=== PATIENT | female | born 1975 | race Caucasian/White ===

== ENCOUNTER 2016-12-22 14:55 | Emergency (ER) | payer OTHER ==
[2016-12-22 15:39] VITALS: BP 99/67
--- NOTE | 2016-12-22 16:02 | UC ---
Barbara Brown Rebecca, scribed for Isabella Kim MD on 12/22/16 at 1546 . Respiratory Complaint HPI - HPI Summary HPI Summary: When we went ot the room to see the patient, she was not there. Pt was seen leaving before eval - History of Current Complaint Chief Complaint: UCGeneralIllness Stated Complaint: ASTHMA,COUGH,FEVER Time Seen by Provider: 12/22/16 15:42 Hx Obtained From: Patient - Allergies/Home Medications Allergies/Adverse Reactions: Allergies Allergy/AdvReac Type Severity Reaction Status Date / Time Diphenhydramine Allergy Difficulty Verified 12/22/16 15:30 [From Benadryl] Breathing Penicillin V Allergy Rash Verified 12/22/16 15:30 Home Medications: Home Medications Acetaminophen [Tylenol] 325 mg PO 12/22/16 [History] Ibuprofen [Advil] 400 mg PO 12/22/16 [History] Pseudoephedrine HCl [Sudafed 12 Hour] 120 mg PO 12/22/16 [History] PMH/Surg Hx/FS Hx/Imm Hx Endocrine History Of: Denies: Diabetes, Thyroid Disease Cardiovascular History Of: Denies: Cardiac Disorders, Hypertension Respiratory History Of: Reports: Asthma Denies: COPD GI/ History Of: Denies: Ulcer Psychological History Of: Reports: Bipolar Disorder - Surgical History Surgical History: None - Social History Alcohol Use: Rare Substance Use Type: Marijuana Substance Use Comment - Amount & Last Used: Pt states smokes weed. hx: heroin and cocaine Smoking Status (MU): Heavy Every Day Tobacco Smoker Type: Cigarettes Amount Used/How Often: 1 pack/ day Length of Time of Smoking/Using Tobacco: 22 YEARS Have You Smoked in the Last Year: Yes - Immunization History Most Recent Influenza Vaccination: never gets it Most Recent Tetanus Shot: UTD Review of Systems All Other Systems Reviewed And Are Negative: No - Comments Additional Review of Systems Comments: left before eval Physical Exam Triage Information Reviewed: Yes Vital Signs: Initial Vital Signs Temp 99.4 F 12/22/16 15:33 Pulse 97 12/22/16 15:33 Resp 14 12/22/16 15:33 BP 99/67 12/22/16 15:33 Pulse Ox 95 12/22/16 15:33 UC Diagnostic Evaluation - Laboratory O2 Sat by Pulse Oximetry: 95 Respiratory Course/Dx - Course Course Of Treatment: left before eval - Differential Dx/Diagnosis Provider Diagnoses: left before eval Discharge - Discharge Plan Condition: Good Disposition: LEFT WITHOUT BEING SEEN Referrals: Jessica Ivory MD [Primary Care Provider] - The documentation as recorded by the Barbara williamson Rebecca accurately reflects the service I personally performed and the decisions made by Julio wheeler Laura, MD.
== END 2016-12-22 16:00 | disposition left against medical advice (07) ==
LOC: UCEAST 14:55
DX: J45.909 Unspecified asthma, uncomplicated (principal); R50.9 Fever, unspecified; Z88.0 Allergy status to penicillin; Z88.8 Allergy status to other drugs, medicaments and biological substances; F12.10 Cannabis abuse, uncomplicated; F17.200 Nicotine dependence, unspecified, uncomplicated; Z53.21 Procedure and treatment not carried out due to patient leaving prior to being seen by health care provider
CPT/HCPCS: 99211; G0463

== ENCOUNTER 2016-12-28 22:50 | Emergency (ER) | payer OTHER ==
[2016-12-28 22:55] VITALS: BP 119/68
[2016-12-28] MEDS ORDERED: NS 0.9% 1000 ML* 1,000 ML IV ONE (23:07)
[2016-12-28] MEDS ORDERED: methylPREDNISolone 125 MG* 2 ML VIAL IV ONE (23:07)
[2016-12-28] MEDS ORDERED: Albuterol 0.5% CONC NEB.SOL* 5 MG/ML 20 ml BOT INH ONE ×2 (23:24→23:37)
[2016-12-28] MEDS ORDERED: Ipratropium 0.5MG/2.5ML NEB* 0.5 MG/2.5 ML NEB.SOLN INH ONE (23:26)
[2016-12-28] MEDS ORDERED: Ipratropium 0.5MG/2.5ML NEB* 0.5 MG/2.5 ML NEB.SOLN ONE (23:28)
--- NOTE | 2016-12-28 23:29 | ED ---
Donna Brown SooYoung, scribed for Alex Inman MD on 12/28/16 at 2303 . Asthma - HPI Summary HPI Summary: A 41 y/o F presents to ED with c/o worsening URI over the past few days. Pt is a smoker. Pert PMHx: acute bronchial asthma. She says her asthma always acts up when the weather changes. Pt is not on home oxygen. She's been taking Zithromax for the past few days. PCP is Dr. Ivory. - History of Current Complaint Chief Complaint: EDAsthma Stated Complaint: ASTHMA COMPLAINT Time Seen by Provider: 12/28/16 23:00 Hx Obtained From: Patient, Family/Dental Service Technician Onset/Duration: Gradual Onset, Lasting Days, Still Present Timing: Constant Initial Severity: Mild Current Severity: Mild Pain Intensity: 0 Pain Scale Used: 0-10 Numeric Location/Character: Cough (Productive) Aggravating Symptoms: Weather Change - Allergy/Home Medications Allergies/Adverse Reactions: Allergies Allergy/AdvReac Type Severity Reaction Status Date / Time Diphenhydramine Allergy Difficulty Verified 12/22/16 15:30 [From Benadryl] Breathing Penicillin V Allergy Rash Verified 12/22/16 15:30 PMH/Surg Hx/FS Hx/Imm Hx Previously Healthy: No Endocrine/Hematology History: Denies: Hx Diabetes, Hx Thyroid Disease Cardiovascular History: Denies: Hx Hypertension Respiratory History: Reports: Hx Asthma Denies: Hx Chronic Obstructive Pulmonary Disease (COPD) GI History: Denies: Hx Ulcer Musculoskeletal History: Denies: Hx Rheumatoid Arthritis, Hx Osteoporosis Psychiatric History: Reports: Hx Bipolar Disorder, Hx Substance Abuse - Heroin Denies: Hx Eating Disorder, Hx of Violent Episodes Against Others - Immunization History Date of Tetanus Vaccine: 02/2009 Infectious Disease History: Reports: Hx of Known/Suspected MRSA - UPPER BACK 2013 Denies: Hx Hepatitis, Hx Human Immunodeficiency Virus (HIV), History Other Infectious Disease, Traveled Outside the [place] in Last 30 Days - Family History Known Family History: Positive: None - Pt denies FMHx, Other - denies FHx of pyschiatric issues - Social History Occupation: Unemployed Lives: With Family Alcohol Use: Rare Hx Substance Use: Yes Substance Use Type: Reports: Marijuana Substance Use Comment - Amount & Last Used: Pt states smokes weed. hx: heroin and cocaine Hx Tobacco Use: Yes Smoking Status (MU): Heavy Every Day Tobacco Smoker Type: Cigarettes Amount Used/How Often: 1 pack/ day Length of Time of Smoking/Using Tobacco: 22 YEARS Have You Smoked in the Last Year: Yes Review of Systems Positive: Shortness Of Breath, Cough - productive All Other Systems Reviewed And Are Negative: Yes Physical Exam Triage Information Reviewed: Yes Vital Signs On Initial Exam: Initial Vitals Temp Pulse Resp BP Pulse Ox 99.1 F 88 22 119/68 92 12/28/16 22:52 12/28/16 22:52 12/28/16 22:52 12/28/16 22:52 12/28/16 22:52 Vital Signs Reviewed: Yes Appearance: Positive: No Pain Distress, Thin Skin: Positive: Warm Head/Face: Positive: Normal Head/Face Inspection Eyes: Positive: TK ENT: Positive: Hearing grossly normal Neck: Positive: Supple Respiratory/Lung Sounds: Positive: Wheezes - diffuse bilat exp wheezes with prolonged expiration Cardiovascular: Positive: Normal Abdomen Description: Positive: Nontender, Soft Bowel Sounds: Positive: Present Neurological: Positive: Sensory/Motor Intact Psychiatric: Positive: Affect/Mood Appropriate Diagnostics - Vital Signs Vital Signs Temp Pulse Resp BP Pulse Ox 12/28/16 22:52 99.1 F 88 22 119/68 92 - Laboratory Result Diagrams: 12/28/16 23:25 12/28/16 23:25 Lab Statement: Any lab studies that have been ordered have been reviewed, and results considered in the medical decision making process. - Radiology CXR Xray Interpretation: No Acute Changes Radiology Interpretation Completed By: ED Physician Re-Evaluation - Re-Evaluation First Eval Change: Improved Asthma Course/Dx - Course Course Of Treatment: Pt is a 41 y/o F, 1ppd smoker, presenting with worsening URI. Pt has been taking Zithromax to no relief. Associated sx: productive cough. Pt given fluids, Albuterol, Solu-medrol, Atrovent in ED. Will DC home with prednisone. - Diagnoses Provider Diagnoses: Asthma Discharge - Discharge Plan Condition: Improved Disposition: HOME Prescriptions: predniSONE TAB* [Deltasone TAB*] 40 mg PO DAILY #8 tab Patient Education Materials: Prednisone (By mouth), Asthma (ED) Referrals: Jessica Ivory MD [Primary Care Provider] - () Additional Instructions: Please return if you experience new or worsening symptoms. The documentation as recorded by the Donna williamson SooYoung accurately reflects the service I personally performed and the decisions made by me, Alex Inman MD.
[2016-12-28 23:40] LABS: Hematocrit 39 % (35-47); Mean Corpuscular HGB Conc 34 g/dl (31-36); Mean Corpuscular Hemoglobin 30 pg (27-31); Mean Corpuscular Volume 89 fL (80-97); Mean Platelet Volume 9 um3 (7.4-10.4); Red Blood Count 4.35 10^6/ul (4.0-5.4); Red Cell Distribution Width 13 % (10.5-15); White Blood Count 8.3 10^3/ul (3.5-10.8)
[2016-12-28] MEDS ORDERED: Albuterol/Ipratropium NEB.SOL* Albuterol 2.5 MG/Ipratropium 0.5 MG 3 ML INH SCH (23:45)
[2016-12-28 23:53] LABS: Albumin 3.5 g/dL (3.2-5.2); BUN/Creatinine Ratio 13.2 (8-20); Calcium 8.8 mg/dL (8.6-10.3); EGFR African American 122.6 (>60); EGFR Non-African American 95.4 (>60); Globulin 3.7 g/dL (2-4); Total Bilirubin 0.3 mg/dL (0.2-1.0); Total Protein 7.2 g/dL (6.4-8.9)
--- NOTE | 2016-12-29 07:46 | RAD ---
HISTORY: Shortness of breath COMPARISONS: December 21, 2015 VIEWS: 2: Frontal dual-energy and lateral views of the chest. FINDINGS: CARDIOMEDIASTINAL SILHOUETTE: The cardiomediastinal silhouette is normal. FLOR: The flor are normal. PLEURA: The costophrenic angles are sharp. No pleural abnormalities are noted. LUNG PARENCHYMA: There is hyperinflation with flattening of the diaphragm and expansion of the AP diameter of the chest. ABDOMEN: The upper abdomen is clear. There is no subphrenic gas. BONES AND SOFT TISSUES: No bone or soft tissue abnormalities are noted. OTHER: None. IMPRESSION: HYPERINFLATION, CONSISTENT WITH COPD. NO ACTIVE CARDIOPULMONARY DISEASE.
== END 2016-12-29 02:02 | disposition home or self-care (01) ==
LOC: ED 22:50
DX: J45.909 Unspecified asthma, uncomplicated (principal); F31.9 Bipolar disorder, unspecified; F17.210 Nicotine dependence, cigarettes, uncomplicated
CPT/HCPCS: 36415; 71020; 80053; 85025; 96360; 99284; J2930; J7644

== ENCOUNTER 2017-02-17 10:51 | Emergency (ER) | payer SELFPAY ==
[2017-02-17 11:47] VITALS: BP 102/65
--- NOTE | 2017-02-17 13:22 | UC ---
Skin Complaint HPI - History of Current Complaint Chief Complaint: UCSkin Time Seen by Provider: 02/17/17 13:10 Stated Complaint: SOFT TISSUE COMPLAINT Hx Obtained From: Patient ?: No Onset/Duration: Gradual Onset - has had worsening abscess R forearm over past week after injecting heroin. today she "poked it open" and pus came out. Onset Severity: Mild Current Severity: Moderate Aggravating: Touch Alleviating: Nothing Associated Signs & Symptoms: Positive: Tenderness - Allergy/Home Medications Allergies/Adverse Reactions: Allergies Allergy/AdvReac Type Severity Reaction Status Date / Time Diphenhydramine Allergy Difficulty Verified 12/22/16 15:30 [From Benadryl] Breathing Penicillin V Allergy Rash Verified 12/22/16 15:30 Review of Systems Constitutional: Negative Respiratory: Negative Cardiovascular: Negative Musculoskeletal: Negative Neurological: Negative Psychological: Negative All Other Systems Reviewed And Are Negative: Yes PMH/Surg Hx/FS Hx/Imm Hx Previously Healthy: Yes Psychological History: Depression, Other - IV heroin and cocaine abuse Other Psychological History: drug abuse - Surgical History Surgical History: None - Family History Known Family History: Positive: None - Pt denies FMHx, Other - denies FHx of pyschiatric issues - Social History Occupation: Unemployed Lives: With Family Alcohol Use: Rare Substance Use Type: Cocaine, Heroin, Marijuana Substance Use Comment - Amount & Last Used: Pt states smokes weed. hx: heroin and cocaine Smoking Status (MU): Heavy Every Day Tobacco Smoker Type: Cigarettes Amount Used/How Often: 1 pack/ day Length of Time of Smoking/Using Tobacco: 22 YEARS Have You Smoked in the Last Year: Yes Cessation Counseling: Patient Advised to Stop - Immunization History Most Recent Influenza Vaccination: never gets it Most Recent Tetanus Shot: UTD Physical Exam Triage Information Reviewed: Yes Appearance: Well-Appearing, No Pain Distress, Well-Nourished Vital Signs: Initial Vital Signs Temp 98.6 F 02/17/17 11:42 Pulse 95 02/17/17 11:42 Resp 18 02/17/17 11:42 BP 102/65 02/17/17 11:42 Pulse Ox 95 02/17/17 11:42 Vital Signs Reviewed: Yes Respiratory Exam: Normal Cardiovascular Exam: Normal Skin: Positive: Other - erythemic, swollen, open abscess R anterior forearm Course/Dx - Differential Diagnoses - Skin Complaint Differential Diagnoses: Abscess, Cellulitis - Diagnoses Provider Diagnoses: skin abscess Discharge - Discharge Plan Condition: Stable Disposition: HOME Prescriptions: Clindamycin CAP* [Cleocin 150 MG CAP*] 300 mg PO Q6H #40 cap Referrals: Jessica Ivory MD [Primary Care Provider] - 2 Days (for recheck) Additional Instructions: warm packs to abscess start antibiotic today keep clean and covered
== END 2017-02-17 13:30 | disposition home or self-care (01) ==
LOC: UCEAST 10:51
DX: L02.413 Cutaneous abscess of right upper limb (principal); L03.113 Cellulitis of right upper limb; F14.10 Cocaine abuse, uncomplicated; F11.10 Opioid abuse, uncomplicated; Z72.0 Tobacco use
CPT/HCPCS: 99212; G0463

== ENCOUNTER 2017-08-04 08:17 | Emergency (ER) | payer SELFPAY ==
--- NOTE | 2017-08-04 08:26 | UC ---
Skin Complaint HPI - HPI Summary HPI Summary: 42 year old female presents with complains of right hand abscess. - History of Current Complaint Time Seen by Provider: 08/04/17 08:25 Stated Complaint: wound on hand Hx Obtained From: Patient Onset/Duration: Sudden Onset Onset Severity: Moderate Current Severity: Moderate Pain Scale Used: 0-10 Numeric - 7 - Allergy/Home Medications Allergies/Adverse Reactions: Allergies Allergy/AdvReac Type Severity Reaction Status Date / Time Diphenhydramine Allergy Difficulty Verified 12/22/16 15:30 [From Benadryl] Breathing Penicillin V Allergy Rash Verified 12/22/16 15:30 Review of Systems Constitutional: Negative Skin: Other - right hand abscess Eyes: Negative ENT: Negative Respiratory: Negative Cardiovascular: Negative Gastrointestinal: Negative Genitourinary: Negative Motor: Negative Neurovascular: Negative Musculoskeletal: Negative Neurological: Negative Psychological: Negative All Other Systems Reviewed And Are Negative: Yes PMH/Surg Hx/FS Hx/Imm Hx Previously Healthy: Yes - Surgical History Surgical History: None - Family History Known Family History: Positive: None - Pt denies FMHx, Other - denies FHx of pyschiatric issues - Social History Alcohol Use: Rare Substance Use Type: Cocaine, Heroin, Marijuana Substance Use Comment - Amount & Last Used: Pt states smokes weed. hx: heroin and cocaine Smoking Status (MU): Heavy Every Day Tobacco Smoker Type: Cigarettes Amount Used/How Often: 1 pack/ day Length of Time of Smoking/Using Tobacco: 22 YEARS Have You Smoked in the Last Year: Yes - Immunization History Most Recent Influenza Vaccination: never gets it Most Recent Tetanus Shot: UTD Physical Exam Triage Information Reviewed: Yes Vital Signs Reviewed: Yes Eye Exam: Normal ENT Exam: Normal Dental Exam: Normal Neck exam: Normal Neck: Positive: 1 Respiratory Exam: Normal Cardiovascular Exam: Normal Abdominal Exam: Normal Musculoskeletal Exam: Normal Neurological Exam: Normal Psychological Exam: Normal Skin: Positive: Other - right hand abscess Course/Dx - Differential Diagnoses - Skin Complaint Differential Diagnoses: Abscess - Diagnoses Provider Diagnoses: right hand abscess Discharge - Discharge Plan Condition: Stable Disposition: HOME Prescriptions: Mupirocin 2% OINT* [Bactroban 2 % Oint*] 1 applic TOPICAL BID #1 tube Sulfamethox/Trimethoprim DS* [Bactrim DS 800/160 TAB*] 1 tab PO BID #20 tab Patient Education Materials: Abscess (ED) Referrals: Jessica Ivory MD [Primary Care Provider] -
[2017-08-04 08:50] VITALS: BP 132/86
--- NOTE | 2017-08-05 07:27 | UC ---
- Progress Note Progress Note: Pt + MRSA on Bactrim Await sensitivity no change [place] 08/05/2017
== END 2017-08-04 09:08 | disposition home or self-care (01) ==
LOC: UCEAST 08:17
DX: L02.511 Cutaneous abscess of right hand (principal); F17.210 Nicotine dependence, cigarettes, uncomplicated; Z88.6 Allergy status to analgesic agent; Z88.0 Allergy status to penicillin
CPT/HCPCS: 87070; 87077; 87186; 87205; 87640; 87641; 99212; G0463

== ENCOUNTER 2018-05-03 17:12 | Emergency (ER) | payer MEDICAID ==
[2018-05-03 17:23] VITALS: BP 108/80
[2018-05-03] MEDS ORDERED: Albuterol/Ipratropium NEB.SOL* Albuterol 2.5 MG/Ipratropium 0.5 MG 3 ML INH ONE (18:40)
[2018-05-03] MEDS ORDERED: predniSONE TAB* 20 MG PO ONE (18:41)
--- NOTE | 2018-05-03 19:14 | ED ---
Respiratory - HPI Summary HPI Summary: 43-year-old female with history of asthma presents complaining of 3 days of increased shortness of breath and wheezing. Associated with a harsh non- productive cough She states she has been using her albuterol inhaler every 4 hours without relief and is almost out. Denies fever, chills, URI symptoms, chest pain, palpitations, edema, abdominal pain, nausea, or vomiting. 1 PPD smoker. She is presently on course of clindamycin for dental infection. - History of Current Complaint Chief Complaint: UCRespiratory Stated Complaint: COUGH,COLD Time Seen by Provider: 05/03/18 18:34 Hx Obtained From: Patient Onset/Duration: Lasting Days - 3-4 Initial Severity: Mild Current Severity: Moderate Pain Intensity: 0 Character: Wheezing, Cough (Nonproductive) - Allergy/Home Medications Allergies/Adverse Reactions: Allergies Allergy/AdvReac Type Severity Reaction Status Date / Time buprenorphine [From Suboxone] Allergy Difficulty Verified 05/03/18 17:25 Breathing diphenhydramine Allergy Difficulty Verified 05/03/18 17:25 [From Benadryl] Breathing naloxone [From Suboxone] Allergy Difficulty Verified 05/03/18 17:25 Breathing Penicillins Allergy Rash Verified 05/03/18 17:25 Home Medications: Home Medications Clindamycin Cap(NF) [Clindamycin Cap 300 mg Cap(NF)] 1 tab PO Q6HR 05/03/18 [ History Confirmed 05/03/18] Ibuprofen TAB* [Motrin TAB* 800 MG] 1 tab PO TID 05/03/18 [History Confirmed ] PMH/Surg Hx/FS Hx/Imm Hx Endocrine/Hematology History: Denies: Hx Diabetes, Hx Thyroid Disease Cardiovascular History: Denies: Hx Atrial Fibrillation, Hx Coronary Artery Disease, Hx Embolism, Hx Hypertension Respiratory History: Reports: Hx Asthma Denies: Hx Chronic Obstructive Pulmonary Disease (COPD) GI History: Denies: Hx Ulcer Musculoskeletal History: Denies: Hx Rheumatoid Arthritis, Hx Osteoporosis Psychiatric History: Reports: Hx Bipolar Disorder, Hx Substance Abuse - Heroin Denies: Hx of Violent Episodes Against Others - Immunization History Date of Tetanus Vaccine: 02/2009 Infectious Disease History: Yes Infectious Disease History: Reports: Hx Hepatitis, Hx of Known/Suspected MRSA - UPPER BACK 2012 Denies: Hx Clostridium Difficile, Hx Human Immunodeficiency Virus (HIV), Hx Shingles, Hx Tuberculosis, Hx Known/Suspected VRE, Hx Known/Suspected VRSA, History Other Infectious Disease, Traveled Outside the [place] in Last 30 Days - Family History Family History: Noncontributory - Social History Occupation: Unemployed Lives: With Family Alcohol Use: Rare Hx Substance Use: Yes Substance Use Type: Reports: Cocaine, Heroin, Marijuana Substance Use Comment - Amount & Last Used: Pt states smokes weed. hx: heroin and cocaine Hx Tobacco Use: Yes Smoking Status (MU): Heavy Every Day Tobacco Smoker Type: Cigarettes Amount Used/How Often: 1 pack/ day Length of Time of Smoking/Using Tobacco: 22 YEARS Have You Smoked in the Last Year: Yes Review of Systems Constitutional: Negative Eyes: Negative ENT: Negative Cardiovascular: Negative Positive: Shortness Of Breath, Cough, Other - wheezing Genitourinary: Negative All Other Systems Reviewed And Are Negative: Yes Physical Exam Triage Information Reviewed: Yes Vital Signs On Initial Exam: Initial Vitals Temp Pulse Resp BP Pulse Ox 98.7 F 94 18 108/80 94 05/03/18 17:21 05/03/18 17:21 05/03/18 17:21 05/03/18 17:21 05/03/18 17:21 Vital Signs Reviewed: Yes Appearance: Positive: No Pain Distress, Ill-Appearing - chronically, Thin - Appears older than stated age Skin: Positive: Warm, Skin Color Reflects Adequate Perfusion, Dry ENT: Positive: TMs normal, Uvula midline. Negative: Pharyngeal erythema, Nasal congestion, Nasal drainage, Tonsillar swelling, Tonsillar exudate Dental: Positive: Gross Decay/Caries @ - throughout dentition Neck: Positive: Supple, Nontender, No Lymphadenopathy Respiratory/Lung Sounds: Positive: Decreased Breath Sounds, Wheezes - diffuse bilataral wheezing, Other - Audible wheezing. Negative: Rales, Rhonchi Cardiovascular: Positive: RRR, S1, S2. Negative: Murmur Neurological: Positive: Alert, Oriented to Person Place, Time Psychiatric: Positive: Affect/Mood Appropriate Diagnostics - Vital Signs Vital Signs Temp Pulse Resp BP Pulse Ox 05/03/18 17:21 98.7 F 94 18 108/80 94 - Laboratory Lab Statement: Any lab studies that have been ordered have been reviewed, and results considered in the medical decision making process. Disposition - Course Course Of Treatment: 43-year-old female with history of asthma presents complaining of 3 days of increased shortness of breath and wheezing. On exam she was mildly hypoxic at 94% with audible wheezes throughout all lung vargas. She was given a single DuoNeb treatment and 40 mg of prednisone in the clinic. Following the treatment the patient's that she was breathing much easier. She continued to have diffuse wheezing throughout all lung vargas. It was recommended that she remain for some serial nebulizer treatments however patient declined stating she would prefer to use her inhaler at home. She was provided a new prescription for albuterol inhaler as she said that she only had a few doses left of her current inhaler. She is also prescribed a prednisone taper for 10 days. Patient was already on clindamycin for a dental infection. It was recommended that she complete this entire course. She is to follow-up with her primary care provider within the next 5 days for recheck of symptoms. Reviewed warning symptoms that would require immediate medical attention in the emergency room with patient. She verbalizes understanding and agrees with plan of care. - Differential Dx - Cardiopulmonary Differential Diagnoses - Cardiopulmonary: Asthma, Bronchitis, Influenza, Lower Resp Infection - Diagnoses Provider Diagnoses: Asthma exacerbation Discharge - Sign-Out/Discharge Documenting (check all that apply): Patient Departure All imaging exams completed and their final reports reviewed: No Studies - Discharge Plan Condition: Stable Disposition: HOME Prescriptions: Albuterol HFA INHALER* [Ventolin HFA Inhaler*] 2 puff INH Q4H PRN #1 mdi PRN Reason: Sob/Wheezing predniSONE TAB* [Deltasone 10 MG TAB*] 10 mg PO DAILY #26 tab Patient Education Materials: Asthma (ED) Referrals: Jessica Ivory MD [Primary Care Provider] - 5 Days (Follow up within 5 days for recheck.) Additional Instructions: You were given a nebulizer treatment in your first dose of prednisone here in the clinic today. Start prednisone taper. Starting tomorrow take 4 tablets daily for 2 days, then take 3 tablets daily for 3 days, then take 2 tablets daily for 3 days, then take 1 tablet daily for 3 days, then stop. Use your albuterol inhaler 2 puffs every 4 hours as needed for shortness of breath or wheezing. Continue the clindamycin prescribed to you previously. Be sure to complete the entire course. I would recommend that he stop smoking as this will worsen her symptoms. Follow-up with your primary care provider within the next 5 days for recheck of your symptoms. Seek immediate medical attention in the emergency room if you develop a fever greater than 100.5 F, have any chest pain, worsening shortness of breath, persistent wheezing despite using your albuterol inhaler, or any worsening of symptoms. - Billing Disposition and Condition Condition: STABLE Disposition: Home
== END 2018-05-03 19:23 | disposition home or self-care (01) ==
LOC: UCEAST 17:12
DX: J45.901 Unspecified asthma with (acute) exacerbation (principal); Z88.5 Allergy status to narcotic agent; Z88.0 Allergy status to penicillin; Z88.8 Allergy status to other drugs, medicaments and biological substances; F17.210 Nicotine dependence, cigarettes, uncomplicated
CPT/HCPCS: 99212; A9270-GY; G0463; J7512

== ENCOUNTER 2018-11-03 03:06 | Emergency (ER) | payer OTHER ==
[2018-11-03] MEDS ORDERED: Sulfamethox/Trimethoprim DS 800/160* TAB PO ONE (06:01)
[2018-11-03] MEDS ORDERED: Clindamycin CAP* 150 MG PO ONE (06:02)
--- NOTE | 2018-11-03 06:16 | ED ---
Skin Complaint - HPI Summary HPI Summary: Patient is a 43 yo IV drug user presenting to the ED with multiple right forearm abscesses. She states she has been attempting to drain them at home, but one was too large and she didn't want to cut it. Last IV drug use in this area was 2 days ago. She states she has been using other sites since the area became red, painful and warm. She has had multiple abscesses she states and has had several I & D's. She denies fevers, sweats or chills. Last IV drug use just [employer]. She is obviously under the influence on arrival and is unable to open her eyes. Family is at bedside. - History of Current Complaint Chief Complaint: EDRashSkinAbscess Time Seen by Provider: 11/03/18 05:36 Stated Complaint: ABSCESS ON MY RIGHT ARM PER PT Hx Obtained From: Patient Onset/Duration: Started Hours Ago Skin Exposure Onset/Duration: Hours Ago Timing: Constant Onset Severity: Worse Since: Current Severity: Severe Pain Intensity: 9 Pain Scale Used: 0-10 Numeric Skin Location: Discrete Character: Swelling, Pain, Redness, Raised, Painful Aggravating Symptom(s): Nothing Alleviating Symptom(s): Nothing Associated Signs & Symptoms: Negative - Allergy/Home Medications Allergies/Adverse Reactions: Allergies Allergy/AdvReac Type Severity Reaction Status Date / Time buprenorphine [From Suboxone] Allergy Difficulty Verified 05/03/18 17:25 Breathing diphenhydramine Allergy Difficulty Verified 05/03/18 17:25 [From Benadryl] Breathing naloxone [From Suboxone] Allergy Difficulty Verified 05/03/18 17:25 Breathing Penicillins Allergy Rash Verified 05/03/18 17:25 Home Medications: Home Medications Mirtazapine 30 mg PO DAILY 11/03/18 [History Confirmed 11/03/18] PMH/Surg Hx/FS Hx/Imm Hx Previously Healthy: Yes Endocrine/Hematology History: Denies: Hx Diabetes, Hx Thyroid Disease Cardiovascular History: Denies: Hx Atrial Fibrillation, Hx Coronary Artery Disease, Hx Embolism, Hx Hypertension Respiratory History: Reports: Hx Asthma Denies: Hx Chronic Obstructive Pulmonary Disease (COPD) GI History: Denies: Hx Ulcer Musculoskeletal History: Denies: Hx Rheumatoid Arthritis, Hx Osteoporosis Psychiatric History: Reports: Hx Bipolar Disorder, Hx Substance Abuse - Heroin Denies: Hx Eating Disorder, Hx of Violent Episodes Against Others - Immunization History Date of Tetanus Vaccine: 02/2009 Hx Pertussis Vaccination: No Immunizations Up to Date: Yes Infectious Disease History: Yes Infectious Disease History: Reports: Hx Hepatitis, Hx of Known/Suspected MRSA - UPPER BACK 2012 Denies: Hx Clostridium Difficile, Hx Human Immunodeficiency Virus (HIV), Hx Shingles, Hx Tuberculosis, Hx Known/Suspected VRE, Hx Known/Suspected VRSA, History Other Infectious Disease, Traveled Outside the [place] in Last 30 Days - Family History Known Family History: Positive: None - Pt denies FMHx, Other - denies FHx of pyschiatric issues Family History: Noncontributory - Social History Occupation: Unemployed Lives: Alone Alcohol Use: Rare Hx Substance Use: Yes Substance Use Type: Reports: Cocaine, Heroin, Marijuana Substance Use Comment - Amount & Last Used: Pt states smokes weed. hx: heroin and cocaine Hx Tobacco Use: Yes Smoking Status (MU): Heavy Every Day Tobacco Smoker Type: Cigarettes Amount Used/How Often: 1 pack/ day Length of Time of Smoking/Using Tobacco: 22 YEARS Have You Smoked in the Last Year: Yes Review of Systems Constitutional: Negative Negative: Fever, Chills, Fatigue, Skin Diaphoresis Negative: Chest Pain Positive: no symptoms reported, see HPI Negative: Arthralgia, Myalgia Positive: Other - 3 abscesses over the antecubital fossa - 2 spontaneously draining Neurological: Negative Psychological: Normal All Other Systems Reviewed And Are Negative: Yes Physical Exam Triage Information Reviewed: Yes Vital Signs On Initial Exam: Initial Vitals Temp Pulse Resp BP Pulse Ox 99.6 F 94 18 112/68 96 11/03/18 03:11 11/03/18 03:11 11/03/18 03:11 11/03/18 03:11 11/03/18 03:11 Vital Signs Reviewed: Yes Appearance: Positive: Well-Appearing, Well-Nourished Skin: Positive: Warm, Skin Color Reflects Adequate Perfusion Head/Face: Positive: Normal Head/Face Inspection Eyes: Positive: EOMI, Conjunctiva Clear Neck: Positive: Supple, No Lymphadenopathy Respiratory/Lung Sounds: Positive: Clear to Auscultation, Breath Sounds Present Cardiovascular: Positive: RRR, Pulses are Symmetrical in both Upper and Lower Extremities Musculoskeletal: Positive: Normal, Strength/ROM Intact, Other - patient continues to be able to flex and extend about the elbow before and after I and D Neurological: Positive: Sensory/Motor Intact, Alert, Oriented to Person Place, Time, Speech Normal Psychiatric: Positive: Affect/Mood Appropriate AVPU Assessment: Alert Procedures - Incision and Drainage Right Upper Anterior Arm Site: R antecubital fossa Anesthesia: Local Instrument(s): Scalpel Packing: Gauze Diagnostics - Vital Signs Vital Signs Temp Pulse Resp BP Pulse Ox 11/03/18 03:11 99.6 F 94 18 112/68 96 - Laboratory Lab Statement: Any lab studies that have been ordered have been reviewed, and results considered in the medical decision making process. Course/Dx - Course Course Of Treatment: Patient is evaluated for right forearm abscesses. She has agreed to an I&D of 1 of the right forearm abscesses in the antecubital fossa. She refuses the other two, however these have been spontaneously draining she states. R forearm has 3 large abscess, 2 of which are draining purulent material. One is fluctuant, non-draining, red, warm and painful. I and D performed under sterile process. 1ml lidocaine without epi used as local anesthetic, .5cm incision made over most superior portion of the abscess. Large amount of purulent drainage from area. Packed with 1/4 iodoform gauze approximately 2.5cm. Patient unable to tolerate further packing. Gauze wrapped. Patient is also refusing further I and D of other 2 abscesses. Clindamycin 600 mg PO given in the ED. She is prescribed clindamycin 300 mg 4 times daily 7 days. She is given strict return precautions and will have a follow-up in 2 days for a wound recheck and a possible repacking. Vital signs are stable, she continues to deny any fevers, sweats, chills. - Differential Diagnoses - Skin Complaint Differential Diagnoses: Other - IV drug use, cellulitis, myositis - Diagnoses Provider Diagnoses: Abscess Discharge - Sign-Out/Discharge Documenting (check all that apply): Patient Departure Patient Received Moderate/Deep Sedation with Procedure: No - Discharge Plan Condition: Stable Disposition: HOME Prescriptions: Clindamycin Cap(NF) [Clindamycin Cap 300 mg Cap(NF)] 300 mg PO Q6H #28 cap Patient Education Materials: Abscess (ED) Referrals: Jessica Ivory MD [Primary Care Provider] - Additional Instructions: Clindamycin four times daily x 7 days Warm compresses to the area as much as possible If you develop worsening abscess, fevers, sweats or chills - return to the ED Wound recheck in 2 days Come here to ED or go to urgent care Do not attempt to drain these at home Keep the bandage applied x 24 hours If the gauze inside the wound comes out - do not replace - just place another bandage over top - Billing Disposition and Condition Condition: STABLE Disposition: Home
[2018-11-03 06:23] VITALS: BP 101/61
== END 2018-11-03 06:22 | disposition home or self-care (01) ==
LOC: ED 03:06
DX: L02.413 Cutaneous abscess of right upper limb (principal); B95.61 Methicillin susceptible Staphylococcus aureus infection as the cause of diseases classified elsewhere; F31.9 Bipolar disorder, unspecified; Z88.5 Allergy status to narcotic agent; Z88.0 Allergy status to penicillin; Z88.8 Allergy status to other drugs, medicaments and biological substances; F17.210 Nicotine dependence, cigarettes, uncomplicated
CPT/HCPCS: 10060; 87070; 87077; 87186; 87205; 87640; 87641; 99282; A9270-GY

== ENCOUNTER 2020-11-02 14:21 | Inpatient (IN) ==
[2020-11-02] MEDS ORDERED: Albuterol 2.5mg/3 ml (0.083%) NEB.SOLN INH PRN (15:52)
[2020-11-02] MEDS ORDERED: Senna TAB 8.6 mg TAB PO PRN (15:52)
[2020-11-02] MEDS ORDERED: Enoxaparin 40 MG/0.4 ML SYR SUBCUT SCH (16:00)
[2020-11-02] MEDS: Lidocaine Patch REMOVE PATCH PATCH OFF SCH (21:46)
[2020-11-02] MEDS: Cefepime 2 GM in Dextrose 2 GM/50 ML BAG IV SCH (21:49)
[2020-11-02] MEDS ORDERED: NS 0.9% IVPB SCH (22:00)
[2020-11-02] MEDS ORDERED: DAPTOMYCIN IVPB SCH (22:00)
[2020-11-02] MEDS ORDERED: Alteplase (CATHFLO) 2 MG VIAL IV ONE (23:29)
[2020-11-03 05:02] LABS: ABS Eosinophils 0.1 10^3/ul (0-0.6); ABS Lymphocytes 2.1 10^3/ul (1.0-4.8); ABS Monocytes 0.5 10^3/ul (0-0.8); ABS Neutrophils 3.5 10^3/ul (1.5-7.7); Eosinophil % 1.9 %; Hematocrit 25 % (35-47); Hemoglobin 8.2 g/dL (12.0-16.0); Lymphocyte % 33.3 %; Mean Corpuscular HGB Conc 33 g/dL (31-36); Mean Corpuscular Hemoglobin 30 pg (27-31); Mean Corpuscular Volume 91 fL (80-97); Mean Platelet Volume 8.2 fL (7.4-10.4); Platelet Count 163 10^3/uL (150-450); Red Blood Count 2.74 10^6 /uL (3.70-4.87); Red Cell Distribution Width 15 % (10-15); White Blood Count 6.2 10^3/uL (3.5-10.8)
[2020-11-03 05:19] LABS: Albumin 1.9 g/dL (3.2-5.2); Albumin/Globulin Ratio 0.4 (1-3); BUN/Creatinine Ratio 15.8 (8-20); Calcium 7.8 mg/dL (8.6-10.3); EGFR African American 52.2 (>60); EGFR Non-African American 43.1 (>60); Globulin 4.4 g/dL (2-4); Potassium 3.3 mmol/L (3.5-5.0); Total Bilirubin 0.3 mg/dL (0.2-1.0); Total Protein 6.3 g/dL (6.4-8.9)
[2020-11-03] MEDS: Aspirin EC 81 mg TAB.EC (enteric coated) PO SCH (08:20)
[2020-11-03] MEDS: Enoxaparin 40 MG/0.4 ML SYR SUBCUT SCH (08:21)
[2020-11-03] MEDS: Lidocaine PATCH 5% PATCH TRANSDERM SCH (08:21)
[2020-11-03] MEDS: Cefepime 2 GM in Dextrose 2 GM/50 ML BAG IV SCH ×2 (08:22→20:52)
[2020-11-03] MEDS: Polyethylene Glycol 3350 17 GM PACKET PO SCH (08:22)
[2020-11-03] MEDS ORDERED: Vancomycin per Pharmacy 1 EA NOTE FOLLOW UP PRN (11:36)
[2020-11-03] MEDS ORDERED: Vancomycin 1,500 MG in NS 0.9% 250 ml 250 ML IVPB ONE (12:00)
[2020-11-03] MEDS: Lidocaine Patch REMOVE PATCH PATCH OFF SCH (20:55)
[2020-11-04 04:57] LABS: ABS Eosinophils 0.1 10^3/ul (0-0.6); ABS Lymphocytes 1.7 10^3/ul (1.0-4.8); ABS Monocytes 0.5 10^3/ul (0-0.8); ABS Neutrophils 3.9 10^3/ul (1.5-7.7); Eosinophil % 1.6 %; Hematocrit 25 % (35-47); Hemoglobin 8.2 g/dL (12.0-16.0); Lymphocyte % 27.7 %; Mean Corpuscular HGB Conc 33 g/dL (31-36); Mean Corpuscular Hemoglobin 30 pg (27-31); Mean Corpuscular Volume 91 fL (80-97); Mean Platelet Volume 8.7 fL (7.4-10.4); Platelet Count 167 10^3/uL (150-450); Red Blood Count 2.75 10^6 /uL (3.70-4.87); Red Cell Distribution Width 15 % (10-15); White Blood Count 6.3 10^3/uL (3.5-10.8)
[2020-11-04 05:22] LABS: Albumin/Globulin Ratio 0.5 (1-3); BUN/Creatinine Ratio 15.6 (8-20); Calcium 7.9 mg/dL (8.6-10.3); EGFR African American 51.3 (>60); EGFR Non-African American 42.4 (>60); Globulin 4.4 g/dL (2-4); Potassium 3.3 mmol/L (3.5-5.0); Total Bilirubin 0.3 mg/dL (0.2-1.0); Total Protein 6.4 g/dL (6.4-8.9)
[2020-11-04] MEDS ORDERED: Vancomycin Random Level NOTE FOLLOW UP ONE (08:00)
[2020-11-04] MEDS: Polyethylene Glycol 3350 17 GM PACKET PO SCH (08:15)
[2020-11-04] MEDS: Aspirin EC 81 mg TAB.EC (enteric coated) PO SCH (08:18)
[2020-11-04] MEDS: Enoxaparin 40 MG/0.4 ML SYR SUBCUT SCH (08:19)
[2020-11-04] MEDS: Cefepime 2 GM in Dextrose 2 GM/50 ML BAG IV SCH ×2 (09:12→21:49)
[2020-11-04] MEDS: Lidocaine PATCH 5% PATCH TRANSDERM SCH (09:15)
[2020-11-04 09:27] LABS: ABS Basophils 0.1 10^3/ul (0-0.2); ABS Eosinophils 0.1 10^3/ul (0-0.6); ABS Lymphocytes 2.5 10^3/ul (1.0-4.8); ABS Monocytes 0.6 10^3/ul (0-0.8); ABS Neutrophils 5.2 10^3/ul (1.5-7.7); Eosinophil % 0.9 %; Hematocrit 29 % (35-47); Hemoglobin 9.9 g/dL (12.0-16.0); Lymphocyte % 29.4 %; Mean Corpuscular HGB Conc 34 g/dL (31-36); Mean Corpuscular Hemoglobin 30 pg (27-31); Mean Corpuscular Volume 89 fL (80-97); Mean Platelet Volume 8.7 fL (7.4-10.4); Nucleated Red Blood Cells % 0.2; Platelet Count 212 10^3/uL (150-450); Red Blood Count 3.29 10^6 /uL (3.70-4.87); Red Cell Distribution Width 15 % (10-15); White Blood Count 8.4 10^3/uL (3.5-10.8)
[2020-11-04 09:37] LABS: Albumin 2.3 g/dL (3.2-5.2); Albumin/Globulin Ratio 0.4 (1-3); BUN/Creatinine Ratio 15.1 (8-20); Calcium 8.4 mg/dL (8.6-10.3); EGFR African American 49.6 (>60); Globulin 5.2 g/dL (2-4); Potassium 3.3 mmol/L (3.5-5.0); Total Bilirubin 0.4 mg/dL (0.2-1.0); Total Protein 7.5 g/dL (6.4-8.9); Vancomycin Random 16.8 mcg/mL
[2020-11-04] MEDS: KCL 20 MEQ/100 ML IVPREMIX 20 MEQ/100 ML BAG IV SCH ×3 (11:53→16:58)
[2020-11-04] MEDS ORDERED: Vancomycin 750 MG in NS 0.9% 250 ML IVPB ONE (12:00)
[2020-11-04] MEDS: Lidocaine Patch REMOVE PATCH PATCH OFF SCH (21:50)
[2020-11-05] MEDS ORDERED: Vancomycin Random Level NOTE FOLLOW UP ONE (06:00)
[2020-11-05 06:37] LABS: EGFR African American 58.8 (>60); EGFR Non-African American 48.6 (>60)
[2020-11-05 06:51] LABS: Vancomycin Random 18.4 mcg/mL
[2020-11-05] MEDS: Aspirin EC 81 mg TAB.EC (enteric coated) PO SCH (09:31)
[2020-11-05] MEDS: Polyethylene Glycol 3350 17 GM PACKET PO SCH (09:32)
[2020-11-05] MEDS: Enoxaparin 40 MG/0.4 ML SYR SUBCUT SCH (09:33)
[2020-11-05] MEDS: Lidocaine PATCH 5% PATCH TRANSDERM SCH (09:50)
[2020-11-05] MEDS: Cefepime 2 GM in Dextrose 2 GM/50 ML BAG IV SCH (09:54)
[2020-11-05] MEDS ORDERED: Vancomycin 500 MG in NS 0.9% 250 ML IVPB ONE (14:00)
[2020-11-05] MEDS: Nicotine PATCH 21 MG/24 HR PATCH TRANSDERM SCH (14:45)
[2020-11-05] MEDS: Lidocaine Patch REMOVE PATCH PATCH OFF SCH (20:34)
[2020-11-05] MEDS: Collagenase 250 units/gm OINT 1 tube TOPICAL SCH (20:34)
[2020-11-06] MEDS ORDERED: Vancomycin Random Level NOTE FOLLOW UP ONE (06:00)
[2020-11-06] MEDS: Enoxaparin 40 MG/0.4 ML SYR SUBCUT SCH (08:37)
[2020-11-06] MEDS: Aspirin EC 81 mg TAB.EC (enteric coated) PO SCH (08:38)
[2020-11-06] MEDS: Nicotine PATCH 21 MG/24 HR PATCH TRANSDERM SCH (08:38)
[2020-11-06] MEDS: Lidocaine PATCH 5% PATCH TRANSDERM SCH (08:38)
[2020-11-06] MEDS: Polyethylene Glycol 3350 17 GM PACKET PO SCH (08:38)
[2020-11-06] MEDS: Collagenase 250 units/gm OINT 1 tube TOPICAL SCH ×2 (08:39→21:16)
[2020-11-06] MEDS ORDERED: Vancomycin 750 MG in NS 0.9% 250 ML IVPB ONE (10:00)
[2020-11-06] MEDS: Lidocaine Patch REMOVE PATCH PATCH OFF SCH (21:16)
[2020-11-07] MEDS ORDERED: Vancomycin Random Level NOTE FOLLOW UP ONE (06:00)
[2020-11-07 06:04] LABS: EGFR African American 52.2 (>60); EGFR Non-African American 43.1 (>60)
[2020-11-07] MEDS: Polyethylene Glycol 3350 17 GM PACKET PO SCH (09:35)
[2020-11-07] MEDS: Enoxaparin 40 MG/0.4 ML SYR SUBCUT SCH (09:35)
[2020-11-07] MEDS: Lidocaine PATCH 5% PATCH TRANSDERM SCH (09:36)
[2020-11-07] MEDS: Nicotine PATCH 21 MG/24 HR PATCH TRANSDERM SCH (09:37)
[2020-11-07] MEDS: Aspirin EC 81 mg TAB.EC (enteric coated) PO SCH (09:37)
[2020-11-07] MEDS: Collagenase 250 units/gm OINT 1 tube TOPICAL SCH ×2 (09:38→20:35)
[2020-11-07] MEDS ORDERED: Vancomycin 1,000 MG - ONCE IVPB ONE (11:00)
[2020-11-07] MEDS: Lidocaine Patch REMOVE PATCH PATCH OFF SCH (23:41)
[2020-11-08 05:33] LABS: ABS Eosinophils 0.2 10^3/ul (0-0.6); ABS Lymphocytes 2.4 10^3/ul (1.0-4.8); ABS Monocytes 0.6 10^3/ul (0-0.8); ABS Neutrophils 3.4 10^3/ul (1.5-7.7); Eosinophil % 2.8 %; Hematocrit 24 % (35-47); Hemoglobin 7.7 g/dL (12.0-16.0); Lymphocyte % 36.2 %; Mean Corpuscular HGB Conc 32 g/dL (31-36); Mean Corpuscular Hemoglobin 30 pg (27-31); Mean Corpuscular Volume 91 fL (80-97); Mean Platelet Volume 8.6 fL (7.4-10.4); Platelet Count 150 10^3/uL (150-450); Red Blood Count 2.61 10^6 /uL (3.70-4.87); Red Cell Distribution Width 16 % (10-15); White Blood Count 6.5 10^3/uL (3.5-10.8)
[2020-11-08 05:56] LABS: ALT 6 U/L (7-52); AST 5 U/L (13-39); Albumin/Globulin Ratio 0.5 (1-3); Alkaline Phosphatase 53 U/L (34-104); Anion Gap 6 mmol/L (2-11); BUN/Creatinine Ratio 17.8 (8-20); Blood Urea Nitrogen 24 mg/dL (6-24); CO2 Carbon Dioxide 28 mmol/L (22-32); Calcium 7.7 mg/dL (8.6-10.3); Chloride 103 mmol/L (101-111); EGFR African American 51.3 (>60); EGFR Non-African American 42.4 (>60); Globulin 3.9 g/dL (2-4); Glucose 87 mg/dL (70-100); Potassium 2.9 mmol/L (3.5-5.0); Sodium 137 mmol/L (135-145); Total Protein 5.9 g/dL (6.4-8.9)
[2020-11-08] MEDS ORDERED: Vancomycin Random Level NOTE FOLLOW UP ONE (06:00)
[2020-11-08 06:03] LABS: Vancomycin Random 13.8 mcg/mL
[2020-11-08] MEDS ORDERED: Cefepime 2 GM in Dextrose 2 GM/50 ML BAG IV SCH (08:00)
[2020-11-08] MEDS ORDERED: Vancomycin per Pharmacy 1 EA NOTE FOLLOW UP SCH (08:00)
[2020-11-08] MEDS: Enoxaparin 40 MG/0.4 ML SYR SUBCUT SCH (08:49)
[2020-11-08] MEDS: Nicotine PATCH 21 MG/24 HR PATCH TRANSDERM SCH (08:50)
[2020-11-08] MEDS: Lidocaine PATCH 5% PATCH TRANSDERM SCH (08:51)
[2020-11-08] MEDS: Aspirin EC 81 mg TAB.EC (enteric coated) PO SCH (08:53)
[2020-11-08] MEDS: Collagenase 250 units/gm OINT 1 tube TOPICAL SCH ×2 (08:56→21:19)
[2020-11-08] MEDS: Polyethylene Glycol 3350 17 GM PACKET PO SCH (08:56)
[2020-11-08] MEDS ORDERED: Vancomycin 1000 MG in NS 0.9% 250 ML IVPB ONE (11:30)
[2020-11-08 13:51] LABS: Total Iron Binding Capacity 167 mcg/dL (250-450); Transferrin 119 mg/dL (203-362)
[2020-11-08 13:59] LABS: % Iron Saturation 12 % (15-55); Iron < 20 ug/dL (50-212); Unsaturated Iron Binding < 152 ug/dL
[2020-11-08 14:12] LABS: Ferritin 248.5 ng/mL (11-307)
[2020-11-08 14:15] LABS: Folate > 20.00 ng/mL (>3.99)
[2020-11-08 14:16] LABS: Vitamin B12 608 pg/mL (180-914)
[2020-11-08] MEDS: Potassium Chlor 20 meq TAB.ER PO SCH ×2 (14:49→16:37)
[2020-11-08] MEDS: Lidocaine Patch REMOVE PATCH PATCH OFF SCH (21:21)
[2020-11-09] MEDS ORDERED: Vancomycin Random Level NOTE FOLLOW UP ONE (06:00)
[2020-11-09] MEDS: Polyethylene Glycol 3350 17 GM PACKET PO SCH (08:35)
[2020-11-09] MEDS: Nicotine PATCH 21 MG/24 HR PATCH TRANSDERM SCH (08:46)
[2020-11-09] MEDS: Enoxaparin 40 MG/0.4 ML SYR SUBCUT SCH (08:46)
[2020-11-09] MEDS: Lidocaine PATCH 5% PATCH TRANSDERM SCH (08:46)
[2020-11-09] MEDS: Aspirin EC 81 mg TAB.EC (enteric coated) PO SCH (08:47)
[2020-11-09] MEDS: Collagenase 250 units/gm OINT 1 tube TOPICAL SCH ×2 (08:48→20:07)
[2020-11-09] MEDS: Vancomycin 1000 MG in NS 0.9% 250 ML IVPB SCH (12:24)
[2020-11-09] MEDS: Lidocaine Patch REMOVE PATCH PATCH OFF SCH (20:05)
[2020-11-10] MEDS: Polyethylene Glycol 3350 17 GM PACKET PO SCH (07:46)
[2020-11-10] MEDS: Lidocaine PATCH 5% PATCH TRANSDERM SCH (08:13)
[2020-11-10] MEDS: Nicotine PATCH 21 MG/24 HR PATCH TRANSDERM SCH (08:13)
[2020-11-10] MEDS: Aspirin EC 81 mg TAB.EC (enteric coated) PO SCH (08:14)
[2020-11-10] MEDS: Enoxaparin 40 MG/0.4 ML SYR SUBCUT SCH (08:16)
[2020-11-10] MEDS: Collagenase 250 units/gm OINT 1 tube TOPICAL SCH ×2 (08:16→21:48)
[2020-11-10] MEDS: Vancomycin 1000 MG in NS 0.9% 250 ML IVPB SCH (12:30)
[2020-11-10] MEDS: Lidocaine Patch REMOVE PATCH PATCH OFF SCH (21:48)
[2020-11-11] MEDS: Lidocaine PATCH 5% PATCH TRANSDERM SCH (10:06)
[2020-11-11] MEDS: Enoxaparin 40 MG/0.4 ML SYR SUBCUT SCH (10:07)
[2020-11-11] MEDS: Aspirin EC 81 mg TAB.EC (enteric coated) PO SCH (10:07)
[2020-11-11] MEDS: Polyethylene Glycol 3350 17 GM PACKET PO SCH (10:10)
[2020-11-11] MEDS: Nicotine PATCH 21 MG/24 HR PATCH TRANSDERM SCH (10:36)
[2020-11-11] MEDS: Collagenase 250 units/gm OINT 1 tube TOPICAL SCH ×2 (10:37→22:00)
[2020-11-11] MEDS ORDERED: Vancomycin Trough Check NOTE FOLLOW UP ONE (12:00)
[2020-11-11 13:55] LABS: Hematocrit 24 % (35-47); Hemoglobin 8.1 g/dL (12.0-16.0)
[2020-11-11 14:19] LABS: EGFR African American 43.1 (>60); EGFR Non-African American 35.6 (>60)
[2020-11-11] MEDS: Vancomycin 1000 MG in NS 0.9% 250 ML IVPB SCH (14:37)
[2020-11-11] MEDS: Lidocaine Patch REMOVE PATCH PATCH OFF SCH (22:00)
[2020-11-12] MEDS: Polyethylene Glycol 3350 17 GM PACKET PO SCH (10:00)
[2020-11-12] MEDS: Enoxaparin 40 MG/0.4 ML SYR SUBCUT SCH (10:16)
[2020-11-12] MEDS: Lidocaine PATCH 5% PATCH TRANSDERM SCH (10:16)
[2020-11-12] MEDS: Aspirin EC 81 mg TAB.EC (enteric coated) PO SCH (10:17)
[2020-11-12] MEDS: Nicotine PATCH 21 MG/24 HR PATCH TRANSDERM SCH (10:17)
[2020-11-12] MEDS: Collagenase 250 units/gm OINT 1 tube TOPICAL SCH (10:18)
[2020-11-13] MEDS: Collagenase 250 units/gm OINT 1 tube TOPICAL SCH ×3 (02:41→20:29)
[2020-11-13] MEDS: Lidocaine Patch REMOVE PATCH PATCH OFF SCH ×2 (02:42→20:30)
[2020-11-13] MEDS ORDERED: Vancomycin Random Level NOTE FOLLOW UP ONE (06:00)
[2020-11-13] MEDS ORDERED: Vancomycin 1000 MG in NS 0.9% 250 ML IVPB ONE (09:00)
[2020-11-13] MEDS: Lidocaine PATCH 5% PATCH TRANSDERM SCH (11:11)
[2020-11-13] MEDS: Nicotine PATCH 21 MG/24 HR PATCH TRANSDERM SCH (11:11)
[2020-11-13] MEDS: Aspirin EC 81 mg TAB.EC (enteric coated) PO SCH (11:12)
[2020-11-13] MEDS: Enoxaparin 40 MG/0.4 ML SYR SUBCUT SCH (11:13)
[2020-11-13] MEDS: Polyethylene Glycol 3350 17 GM PACKET PO SCH (12:09)
[2020-11-13 15:22] LABS: Hematocrit 23 % (35-47); Hemoglobin 7.6 g/dL (12.0-16.0); Mean Corpuscular HGB Conc 33 g/dL (31-36); Mean Corpuscular Hemoglobin 30 pg (27-31); Mean Corpuscular Volume 90 fL (80-97); Mean Platelet Volume 8.3 fL (7.4-10.4); Platelet Count 123 10^3/uL (150-450); Red Blood Count 2.54 10^6 /uL (3.70-4.87); Red Cell Distribution Width 15 % (10-15); White Blood Count 5.7 10^3/uL (3.5-10.8)
[2020-11-13 15:37] LABS: BUN/Creatinine Ratio 17.7 (8-20); Calcium 8.1 mg/dL (8.6-10.3); EGFR Non-African American 33.9 (>60); Magnesium 1.4 mg/dL (1.9-2.7); Potassium 4.2 mmol/L (3.5-5.0)
[2020-11-13 15:53] LABS: ABS Eosinophils 0.1 10^3/ul (0-0.6); ABS Lymphocytes 2.4 10^3/ul (1.0-4.8); ABS Monocytes 0.5 10^3/ul (0-0.8); ABS Neutrophils 2.6 10^3/ul (1.5-7.7); Eosinophil % 2.2 %; Lymphocyte % 42.4 %
[2020-11-13] MEDS ORDERED: Magnesium Sulfate IV 3 GM in NS 0.9% 100 ml BAG 100 ML IVPB ONE (17:08)
[2020-11-14] MEDS ORDERED: Vancomycin Random Level NOTE FOLLOW UP ONE (06:00)
[2020-11-14 06:15] LABS: EGFR African American 33.4 (>60); EGFR Non-African American 27.6 (>60)
[2020-11-14 06:24] LABS: Vancomycin Random 22.5 mcg/mL
[2020-11-14] MEDS: Enoxaparin 40 MG/0.4 ML SYR SUBCUT SCH (09:59)
[2020-11-14] MEDS: Lidocaine PATCH 5% PATCH TRANSDERM SCH (09:59)
[2020-11-14] MEDS: Nicotine PATCH 21 MG/24 HR PATCH TRANSDERM SCH (10:00)
[2020-11-14] MEDS: Polyethylene Glycol 3350 17 GM PACKET PO SCH (10:03)
[2020-11-14] MEDS: Collagenase 250 units/gm OINT 1 tube TOPICAL SCH ×2 (10:03→22:28)
[2020-11-14] MEDS: Aspirin EC 81 mg TAB.EC (enteric coated) PO SCH (10:03)
[2020-11-14] MEDS: Lidocaine Patch REMOVE PATCH PATCH OFF SCH (22:56)
[2020-11-15] MEDS ORDERED: Vancomycin Random Level NOTE FOLLOW UP ONE (06:00)
[2020-11-15 06:31] LABS: ABS Eosinophils 0.1 10^3/ul (0-0.6); ABS Lymphocytes 2.5 10^3/ul (1.0-4.8); ABS Monocytes 0.4 10^3/ul (0-0.8); ABS Neutrophils 2.3 10^3/ul (1.5-7.7); Eosinophil % 2.3 %; Hematocrit 21 % (35-47); Hemoglobin 7.1 g/dL (12.0-16.0); Lymphocyte % 46.7 %; Mean Corpuscular HGB Conc 33 g/dL (31-36); Mean Corpuscular Hemoglobin 30 pg (27-31); Mean Corpuscular Volume 90 fL (80-97); Mean Platelet Volume 8.8 fL (7.4-10.4); Nucleated Red Blood Cells % 0.1; Platelet Count 136 10^3/uL (150-450); Red Blood Count 2.37 10^6 /uL (3.70-4.87); Red Cell Distribution Width 15 % (10-15); White Blood Count 5.4 10^3/uL (3.5-10.8)
[2020-11-15 06:48] LABS: BUN/Creatinine Ratio 15.3 (8-20); EGFR Non-African American 26.6 (>60); Potassium 4.2 mmol/L (3.5-5.0)
[2020-11-15 06:49] LABS: Albumin 2.3 g/dL (3.2-5.2); Albumin/Globulin Ratio 0.5 (1-3); C Reactive Protein 65.25 mg/L (<8.01); Calcium 8.4 mg/dL (8.6-10.3); EGFR African American 32.2 (>60); Globulin 4.3 g/dL (2-4); Total Bilirubin 0.2 mg/dL (0.2-1.0); Total Protein 6.6 g/dL (6.4-8.9); Vancomycin Random 16.1 mcg/mL
[2020-11-15] MEDS: Collagenase 250 units/gm OINT 1 tube TOPICAL SCH ×2 (09:47→21:09)
[2020-11-15] MEDS: Nicotine PATCH 21 MG/24 HR PATCH TRANSDERM SCH (09:55)
[2020-11-15] MEDS: Aspirin EC 81 mg TAB.EC (enteric coated) PO SCH (09:57)
[2020-11-15] MEDS: Polyethylene Glycol 3350 17 GM PACKET PO SCH (10:01)
[2020-11-15] MEDS: Enoxaparin 40 MG/0.4 ML SYR SUBCUT SCH (10:01)
[2020-11-15] MEDS: Lidocaine PATCH 5% PATCH TRANSDERM SCH (10:02)
[2020-11-16 05:23] LABS: Hematocrit 21 % (35-47); Hemoglobin 7.1 g/dL (12.0-16.0); Mean Corpuscular HGB Conc 34 g/dL (31-36); Mean Corpuscular Hemoglobin 30 pg (27-31); Mean Corpuscular Volume 90 fL (80-97); Mean Platelet Volume 8.1 fL (7.4-10.4); Platelet Count 134 10^3/uL (150-450); Red Blood Count 2.35 10^6 /uL (3.70-4.87); Red Cell Distribution Width 15 % (10-15); White Blood Count 5.6 10^3/uL (3.5-10.8)
[2020-11-16] MEDS: Lidocaine Patch REMOVE PATCH PATCH OFF SCH ×2 (05:27→20:26)
[2020-11-16] MEDS: Enoxaparin 40 MG/0.4 ML SYR SUBCUT SCH (09:20)
[2020-11-16] MEDS: Aspirin EC 81 mg TAB.EC (enteric coated) PO SCH (09:20)
[2020-11-16] MEDS: Lidocaine PATCH 5% PATCH TRANSDERM SCH (09:22)
[2020-11-16] MEDS: Polyethylene Glycol 3350 17 GM PACKET PO SCH (09:22)
[2020-11-16] MEDS: Nicotine PATCH 21 MG/24 HR PATCH TRANSDERM SCH (09:22)
[2020-11-16] MEDS: Collagenase 250 units/gm OINT 1 tube TOPICAL SCH ×2 (09:23→20:25)
[2020-11-16] MEDS ORDERED: DAPTOmycin SDV 500 MG in NS 0.9% 50 ML 50 ML IVPB ONE (11:00)
[2020-11-17] MEDS: Nicotine PATCH 21 MG/24 HR PATCH TRANSDERM SCH (08:53)
[2020-11-17] MEDS: Aspirin EC 81 mg TAB.EC (enteric coated) PO SCH (08:58)
[2020-11-17] MEDS: Polyethylene Glycol 3350 17 GM PACKET PO SCH (08:58)
[2020-11-17] MEDS: Enoxaparin 30 MG/0.3 ML SYR SUBCUT SCH (08:59)
[2020-11-17] MEDS: Lidocaine PATCH 5% PATCH TRANSDERM SCH (08:59)
[2020-11-17] MEDS: Collagenase 250 units/gm OINT 1 tube TOPICAL SCH ×2 (11:26→20:01)
[2020-11-17] MEDS: Lidocaine Patch REMOVE PATCH PATCH OFF SCH (20:01)
[2020-11-18 06:46] LABS: BUN/Creatinine Ratio 15.5 (8-20); EGFR African American 27.3 (>60); EGFR Non-African American 22.6 (>60); Potassium 4.1 mmol/L (3.5-5.0)
[2020-11-18 07:24] LABS: Hematocrit 26 % (35-47); Hemoglobin 8.3 g/dL (12.0-16.0); Mean Corpuscular HGB Conc 32 g/dL (31-36); Mean Corpuscular Hemoglobin 30 pg (27-31); Mean Corpuscular Volume 93 fL (80-97); Mean Platelet Volume 8.4 fL (7.4-10.4); Platelet Count 161 10^3/uL (150-450); Red Cell Distribution Width 15 % (10-15); White Blood Count 5.5 10^3/uL (3.5-10.8)
[2020-11-18] MEDS ORDERED: Buffered Lidocaine 1% SYRIN 1 ml INTRADERM ONE ×2 (09:06→15:14)
[2020-11-18] MEDS ORDERED: DAPTOmycin SDV 500 MG in NS 0.9% 50 ML 50 ML IVPB SCH ×2 (11:00→21:00)
[2020-11-18] MEDS: Lidocaine PATCH 5% PATCH TRANSDERM SCH (11:14)
[2020-11-18] MEDS: Enoxaparin 30 MG/0.3 ML SYR SUBCUT SCH (11:16)
[2020-11-18] MEDS: Nicotine PATCH 21 MG/24 HR PATCH TRANSDERM SCH (11:17)
[2020-11-18] MEDS: Aspirin EC 81 mg TAB.EC (enteric coated) PO SCH (11:18)
[2020-11-18] MEDS: Polyethylene Glycol 3350 17 GM PACKET PO SCH (11:21)
[2020-11-18] MEDS: Collagenase 250 units/gm OINT 1 tube TOPICAL SCH ×2 (14:38→21:04)
[2020-11-18] MEDS: Lidocaine Patch REMOVE PATCH PATCH OFF SCH (21:11)
[2020-11-19] MEDS: Aspirin EC 81 mg TAB.EC (enteric coated) PO SCH (09:10)
[2020-11-19] MEDS: Enoxaparin 30 MG/0.3 ML SYR SUBCUT SCH ×2 (09:11→09:19)
[2020-11-19] MEDS: Lidocaine PATCH 5% PATCH TRANSDERM SCH (09:11)
[2020-11-19] MEDS: Nicotine PATCH 21 MG/24 HR PATCH TRANSDERM SCH ×2 (09:11→09:19)
[2020-11-19] MEDS: Polyethylene Glycol 3350 17 GM PACKET PO SCH (09:12)
[2020-11-19 11:37] LABS: BUN/Creatinine Ratio 15.3 (8-20); Calcium 8.6 mg/dL (8.6-10.3); EGFR African American 26.9 (>60); EGFR Non-African American 22.3 (>60); Potassium 3.6 mmol/L (3.5-5.0)
[2020-11-19] MEDS: Collagenase 250 units/gm OINT 1 tube TOPICAL SCH ×2 (12:14→22:23)
[2020-11-19] MEDS ORDERED: NS 0.9% 1000 ml BAG 1,000 ML IV ONE (16:53)
[2020-11-19 17:54] LABS: Magnesium 1.6 mg/dL (1.9-2.7)
[2020-11-19] MEDS ORDERED: Magnesium Sulfate IV 1GM/100ML 1 GM/100 ML BAG IV ONE (18:55)
[2020-11-19 19:00] LABS: Urine Creatinine Concentration 26.98 mg/dL
[2020-11-19 19:03] LABS: Urine Appearance Clear; Urine Bilirubin Negative (Negative); Urine Blood 3+ (Negative); Urine Color Yellow; Urine Glucose Negative (Negative); Urine Ketones Negative (Negative); Urine Nitrite Negative (Negative); Urine Protein 1+(30 mg/dL) (Negative); Urine Specific Gravity 1.006 (1.002-1.030); Urine Urobilinogen Negative (Negative)
[2020-11-19 19:10] LABS: Urine Bacteria 1+ (Absent); Urine Red Blood Cell 3+(>10/hpf) (Absent); Urine Squamous Epithelial Cell Present (Absent); Urine White Blood Cell Trace(0-5/hpf) (Absent)
[2020-11-19] MEDS: Lidocaine Patch REMOVE PATCH PATCH OFF SCH (22:22)
[2020-11-20] MEDS: Lidocaine PATCH 5% PATCH TRANSDERM SCH (09:12)
[2020-11-20] MEDS: Enoxaparin 30 MG/0.3 ML SYR SUBCUT SCH (09:12)
[2020-11-20] MEDS: Nicotine PATCH 21 MG/24 HR PATCH TRANSDERM SCH (09:12)
[2020-11-20] MEDS: Aspirin EC 81 mg TAB.EC (enteric coated) PO SCH (09:13)
[2020-11-20] MEDS: Collagenase 250 units/gm OINT 1 tube TOPICAL SCH ×2 (09:14→21:16)
[2020-11-20] MEDS: Polyethylene Glycol 3350 17 GM PACKET PO SCH (09:14)
[2020-11-20 14:16] LABS: BUN/Creatinine Ratio 15.4 (8-20); Calcium 8.8 mg/dL (8.6-10.3); EGFR African American 26.3 (>60); EGFR Non-African American 21.7 (>60); Magnesium 1.7 mg/dL (1.9-2.7); Potassium 3.8 mmol/L (3.5-5.0)
[2020-11-20] MEDS ORDERED: DAPTOMYCIN IVPB SCH (21:00)
[2020-11-20] MEDS ORDERED: NS 0.9% IVPB SCH (21:00)
[2020-11-20] MEDS: Lidocaine Patch REMOVE PATCH PATCH OFF SCH (21:29)
[2020-11-21 06:54] LABS: BUN/Creatinine Ratio 14.6 (8-20); Calcium 8.9 mg/dL (8.6-10.3); EGFR Non-African American 19.8 (>60)
[2020-11-21] MEDS: Nicotine PATCH 21 MG/24 HR PATCH TRANSDERM SCH (10:21)
[2020-11-21] MEDS: Enoxaparin 30 MG/0.3 ML SYR SUBCUT SCH (10:21)
[2020-11-21] MEDS: Collagenase 250 units/gm OINT 1 tube TOPICAL SCH ×2 (10:21→23:01)
[2020-11-21] MEDS: Aspirin EC 81 mg TAB.EC (enteric coated) PO SCH (10:22)
[2020-11-21] MEDS: Lidocaine PATCH 5% PATCH TRANSDERM SCH (10:25)
[2020-11-21] MEDS: Polyethylene Glycol 3350 17 GM PACKET PO SCH (10:26)
[2020-11-21] MEDS ORDERED: DAPTOmycin SDV 500 MG in NS 0.9% 50 ML 50 ML IVPB SCH (13:04)
[2020-11-21 15:01] LABS: C Reactive Protein 48.04 mg/L (<8.01)
[2020-11-21 15:38] LABS: HIV 4th Generation Nonreactive (Nonreactive)
[2020-11-21 16:32] LABS: Hepatitis B Surface Ab Not Immune (Immune)
[2020-11-21 16:51] LABS: Hepatitis C Antibody Reactive (Negative)
[2020-11-21 19:24] LABS: UR Microalbumin (mg/L) 165.1 mg/L; Urine Creatinine 25.19 mg/dL; Urine Creatinine Concentration 25.19 mg/dL; Urine Microalbumin/Creatinine 655.4 (<31)
[2020-11-21] MEDS: Lidocaine Patch REMOVE PATCH PATCH OFF SCH (23:04)
[2020-11-22 06:17] LABS: ABS Eosinophils 0.2 10^3/ul (0-0.6); ABS Lymphocytes 3.2 10^3/ul (1.0-4.8); ABS Monocytes 0.4 10^3/ul (0-0.8); Eosinophil % 3.4 %; Hematocrit 25 % (35-47); Hemoglobin 8.1 g/dL (12.0-16.0); Lymphocyte % 54.6 %; Mean Corpuscular HGB Conc 33 g/dL (31-36); Mean Corpuscular Hemoglobin 30 pg (27-31); Mean Corpuscular Volume 90 fL (80-97); Mean Platelet Volume 7.4 fL (7.4-10.4); Platelet Count 189 10^3/uL (150-450); Red Blood Count 2.73 10^6 /uL (3.70-4.87); Red Cell Distribution Width 15 % (10-15); White Blood Count 5.8 10^3/uL (3.5-10.8)
[2020-11-22 06:39] LABS: Albumin 2.7 g/dL (3.2-5.2); Albumin/Globulin Ratio 0.6 (1-3); BUN/Creatinine Ratio 14.8 (8-20); C Reactive Protein 36.67 mg/L (<8.01); Calcium 8.9 mg/dL (8.6-10.3); EGFR African American 23.1 (>60); EGFR Non-African American 19.1 (>60); Globulin 4.5 g/dL (2-4); Potassium 3.8 mmol/L (3.5-5.0); Total Bilirubin 0.2 mg/dL (0.2-1.0); Total Protein 7.2 g/dL (6.4-8.9)
[2020-11-22] MEDS ORDERED: Enoxaparin 30 MG/0.3 ML SYR SUBCUT SCH (09:00)
[2020-11-22] MEDS: Aspirin EC 81 mg TAB.EC (enteric coated) PO SCH (11:06)
[2020-11-22] MEDS: Nicotine PATCH 21 MG/24 HR PATCH TRANSDERM SCH (11:08)
[2020-11-22] MEDS: Lidocaine PATCH 5% PATCH TRANSDERM SCH (11:09)
[2020-11-22] MEDS: Polyethylene Glycol 3350 17 GM PACKET PO SCH (11:10)
[2020-11-22] MEDS: Collagenase 250 units/gm OINT 1 tube TOPICAL SCH ×2 (11:22→22:21)
[2020-11-22 14:32] LABS: Hepatitis B Surface Antigen Nonreactive (Nonreactive)
[2020-11-22] MEDS ORDERED: DAPTOmycin SDV 500 MG in NS 0.9% 50 ML 50 ML IVPB SCH (21:00)
[2020-11-22] MEDS: Lidocaine Patch REMOVE PATCH PATCH OFF SCH (22:21)
[2020-11-23] MEDS ORDERED: Desmopressin Acetate 30 MCG in NS 0.9% 50 ML 50 ML IVPB ONE (09:00)
[2020-11-23] MEDS: Lidocaine PATCH 5% PATCH TRANSDERM SCH (10:39)
[2020-11-23] MEDS: Nicotine PATCH 21 MG/24 HR PATCH TRANSDERM SCH (10:40)
[2020-11-23] MEDS: Aspirin EC 81 mg TAB.EC (enteric coated) PO SCH (10:42)
[2020-11-23] MEDS: Collagenase 250 units/gm OINT 1 tube TOPICAL SCH ×2 (10:44→20:21)
[2020-11-23] MEDS: Polyethylene Glycol 3350 17 GM PACKET PO SCH (10:44)
[2020-11-23 11:51] LABS: Urine Appearance Clear; Urine Bilirubin Negative (Negative); Urine Blood 3+ (Negative); Urine Color Straw; Urine Glucose Negative (Negative); Urine Ketones Negative (Negative); Urine Nitrite Negative (Negative); Urine Protein 1+(30 mg/dL) (Negative); Urine Specific Gravity 1.006 (1.002-1.030); Urine Urobilinogen Negative (Negative)
[2020-11-23 11:56] LABS: Urine Bacteria 1+ (Absent); Urine Red Blood Cell 3+(>10/hpf) (Absent); Urine Squamous Epithelial Cell Present (Absent); Urine White Blood Cell Trace(0-5/hpf) (Absent)
[2020-11-23 13:28] LABS: Calcium 8.9 mg/dL (8.6-10.3); EGFR Non-African American 23.2 (>60); Potassium 3.7 mmol/L (3.5-5.0)
[2020-11-23 16:26] LABS: Complement C3 160 mg/dL (75 - 175)
[2020-11-23 16:49] LABS: Myeloperoxidase Antibody <0.2 U
[2020-11-23 18:06] LABS: Urine Kappa Total Light Chain 10.3 mg/dL (<0.9000); Urine Kappa/Lambda Light Chain 1.34
[2020-11-23] MEDS: Lidocaine Patch REMOVE PATCH PATCH OFF SCH (20:23)
[2020-11-24] MEDS: Lidocaine PATCH 5% PATCH TRANSDERM SCH (08:40)
[2020-11-24] MEDS: Nicotine PATCH 21 MG/24 HR PATCH TRANSDERM SCH (08:47)
[2020-11-24] MEDS: Aspirin EC 81 mg TAB.EC (enteric coated) PO SCH (08:54)
[2020-11-24] MEDS: Collagenase 250 units/gm OINT 1 tube TOPICAL SCH (08:57)
[2020-11-24] MEDS: Polyethylene Glycol 3350 17 GM PACKET PO SCH (08:58)
[2020-11-24 09:30] LABS: Hematocrit 21 % (35-47); Hemoglobin 6.8 g/dL (12.0-16.0); Mean Corpuscular HGB Conc 33 g/dL (31-36); Mean Corpuscular Hemoglobin 30 pg (27-31); Mean Corpuscular Volume 90 fL (80-97); Mean Platelet Volume 7.8 fL (7.4-10.4); Platelet Count 162 10^3/uL (150-450); Red Cell Distribution Width 15 % (10-15); White Blood Count 6.7 10^3/uL (3.5-10.8)
[2020-11-24 09:49] LABS: Calcium 8.6 mg/dL (8.6-10.3); EGFR African American 27.6 (>60); EGFR Non-African American 22.8 (>60); Potassium 3.6 mmol/L (3.5-5.0)
[2020-11-24 10:59] LABS: Kappa Free Light Chain 15.2 mg/dL; Lambda Free Light Chain, S 21.6 mg/dL
[2020-11-24 11:21] LABS: Magnesium 1.7 mg/dL (1.9-2.7)
[2020-11-24 13:05] VITALS: BP 91/68
[2020-11-24 16:46] LABS: C-ANCA Negative (Negative); P-ANCA Positive (Negative)
[2020-11-24 17:17] LABS: Albumin 2.3 g/dL (3.4-4.7); Albumin/Globulin Ratio 0.44; Gamma Globulin 2.5 g/dL (0.6-1.6); Total Protein(PEP) 7.7 g/dL (6.3 - 7.9)
[2020-11-25 15:16] LABS: Phospholipase A2 Receptor IFA Negative (Negative); Phospholipase A2 ReceptorELISA <2 RU/mL
[2020-11-28 10:56] LABS: Flag, M-protein Isotype Negative (Negative)
== END 2020-11-24 14:08 | disposition home health service (06) | DRG 469 ==
LOC: MEDTELE 14:21 → MED 11-05 01:59
PROVIDERS: ADMIT Pediatrics; ATTEND Hospitalist

== ENCOUNTER 2020-11-24 14:09 | Inpatient (IN) ==
[2020-11-24] MEDS ORDERED: Ondansetron 4 mg VIAL 2 MG/ML 2 ml VIAL IV PRN (14:16)
[2020-11-24] MEDS ORDERED: Senna TAB 8.6 mg TAB PO PRN (14:20)
[2020-11-24] MEDS ORDERED: Albuterol 2.5mg/3 ml (0.083%) NEB.SOLN INH PRN (14:20)
[2020-11-24] MEDS: Collagenase 250 units/gm OINT 1 tube TOPICAL SCH (20:11)
[2020-11-24] MEDS ORDERED: NON FORMULARY MED (Lidocaine Patch Remove 1 PATCH) PATCH OFF SCH (21:00)
[2020-11-24] MEDS: DAPTOmycin SDV 500 MG in NS 0.9% 50 ML 50 ML IVPB SCH (21:22)
[2020-11-24] MEDS: Lidocaine Patch REMOVE PATCH PATCH OFF SCH (21:25)
[2020-11-25 09:01] LABS: ABS Eosinophils 0.3 10^3/ul (0-0.6); ABS Lymphocytes 3.2 10^3/ul (1.0-4.8); ABS Monocytes 0.6 10^3/ul (0-0.8); ABS Neutrophils 3.5 10^3/ul (1.5-7.7); Eosinophil % 3.8 %; Hematocrit 27 % (35-47); Hemoglobin 8.9 g/dL (12.0-16.0); Mean Corpuscular HGB Conc 33 g/dL (31-36); Mean Corpuscular Hemoglobin 30 pg (27-31); Mean Corpuscular Volume 90 fL (80-97); Mean Platelet Volume 7.5 fL (7.4-10.4); Nucleated Red Blood Cells % 0.1; Platelet Count 187 10^3/uL (150-450); Red Cell Distribution Width 15 % (10-15); White Blood Count 7.6 10^3/uL (3.5-10.8)
[2020-11-25 09:18] LABS: Albumin 2.9 g/dL (3.2-5.2); Albumin/Globulin Ratio 0.6 (1-3); Calcium 8.8 mg/dL (8.6-10.3); EGFR African American 29.5 (>60); EGFR Non-African American 24.4 (>60); Globulin 4.7 g/dL (2-4); Magnesium 1.6 mg/dL (1.9-2.7); Potassium 3.4 mmol/L (3.5-5.0); Total Bilirubin 0.3 mg/dL (0.2-1.0); Total Protein 7.6 g/dL (6.4-8.9)
[2020-11-25] MEDS ORDERED: Potassium Chloride LIQUID 20 MEQ/15 ML LIQUID PO ONE (09:19)
[2020-11-25] MEDS ORDERED: Magnesium Sulfate 2 gm BAG 2 GM/50 ML BAG IVPB ONE (09:19)
[2020-11-25] MEDS: Collagenase 250 units/gm OINT 1 tube TOPICAL SCH ×2 (09:43→21:32)
[2020-11-25] MEDS: Nicotine PATCH 21 MG/24 HR PATCH TRANSDERM SCH (09:44)
[2020-11-25] MEDS: Polyethylene Glycol 3350 17 GM PACKET PO SCH (09:44)
[2020-11-25] MEDS: Lidocaine PATCH 5% PATCH TRANSDERM SCH (09:45)
[2020-11-25] MEDS: Aspirin EC 81 mg TAB.EC (enteric coated) PO SCH (09:47)
[2020-11-25] MEDS: Lidocaine Patch REMOVE PATCH PATCH OFF SCH (21:32)
[2020-11-26] MEDS: Lidocaine PATCH 5% PATCH TRANSDERM SCH (10:08)
[2020-11-26] MEDS: Nicotine PATCH 21 MG/24 HR PATCH TRANSDERM SCH (10:08)
[2020-11-26] MEDS: Aspirin EC 81 mg TAB.EC (enteric coated) PO SCH (10:08)
[2020-11-26] MEDS: Polyethylene Glycol 3350 17 GM PACKET PO SCH (10:09)
[2020-11-26] MEDS: Collagenase 250 units/gm OINT 1 tube TOPICAL SCH ×2 (10:13→20:37)
[2020-11-26 12:16] LABS: ABS Eosinophils 0.3 10^3/ul (0-0.6); ABS Lymphocytes 3.2 10^3/ul (1.0-4.8); ABS Monocytes 0.6 10^3/ul (0-0.8); ABS Neutrophils 3.9 10^3/ul (1.5-7.7); Eosinophil % 3.5 %; Hematocrit 27 % (35-47); Hemoglobin 9.1 g/dL (12.0-16.0); Lymphocyte % 39.5 %; Mean Corpuscular HGB Conc 34 g/dL (31-36); Mean Corpuscular Hemoglobin 30 pg (27-31); Mean Corpuscular Volume 89 fL (80-97); Mean Platelet Volume 7.7 fL (7.4-10.4); Platelet Count 211 10^3/uL (150-450); Red Blood Count 3.03 10^6 /uL (3.70-4.87); Red Cell Distribution Width 15 % (10-15)
[2020-11-26 12:30] LABS: EGFR African American 30.2 (>60); EGFR Non-African American 24.9 (>60); Magnesium 1.9 mg/dL (1.9-2.7); Potassium 3.9 mmol/L (3.5-5.0)
[2020-11-26] MEDS: Enoxaparin 30 MG/0.3 ML SYR SUBCUT SCH (14:43)
[2020-11-26] MEDS: DAPTOmycin SDV 500 MG in NS 0.9% 50 ML 50 ML IVPB SCH (21:38)
[2020-11-26] MEDS: Lidocaine Patch REMOVE PATCH PATCH OFF SCH (21:39)
[2020-11-27] MEDS: Lidocaine PATCH 5% PATCH TRANSDERM SCH (08:50)
[2020-11-27] MEDS: Aspirin EC 81 mg TAB.EC (enteric coated) PO SCH (08:51)
[2020-11-27] MEDS: Collagenase 250 units/gm OINT 1 tube TOPICAL SCH ×3 (08:51→20:14)
[2020-11-27] MEDS: Nicotine PATCH 21 MG/24 HR PATCH TRANSDERM SCH (08:51)
[2020-11-27] MEDS: Polyethylene Glycol 3350 17 GM PACKET PO SCH ×2 (08:53→09:04)
[2020-11-27] MEDS: Enoxaparin 30 MG/0.3 ML SYR SUBCUT SCH (13:45)
[2020-11-27] MEDS: Lidocaine Patch REMOVE PATCH PATCH OFF SCH (20:14)
[2020-11-28 06:39] LABS: ABS Eosinophils 0.1 10^3/ul (0-0.6); ABS Monocytes 0.6 10^3/ul (0-0.8); ABS Neutrophils 5.4 10^3/ul (1.5-7.7); Eosinophil % 1.4 %; Hematocrit 27 % (35-47); Hemoglobin 8.9 g/dL (12.0-16.0); Lymphocyte % 32.5 %; Mean Corpuscular HGB Conc 32 g/dL (31-36); Mean Corpuscular Hemoglobin 29 pg (27-31); Mean Corpuscular Volume 91 fL (80-97); Mean Platelet Volume 7.5 fL (7.4-10.4); Platelet Count 231 10^3/uL (150-450); Red Blood Count 3.03 10^6 /uL (3.70-4.87); Red Cell Distribution Width 15 % (10-15); White Blood Count 9.1 10^3/uL (3.5-10.8)
[2020-11-28 06:50] LABS: Albumin 2.8 g/dL (3.2-5.2); Albumin/Globulin Ratio 0.6 (1-3); C Reactive Protein 101.5 mg/L (<8.01); Calcium 8.7 mg/dL (8.6-10.3); EGFR African American 28.8 (>60); EGFR Non-African American 23.8 (>60); Globulin 4.7 g/dL (2-4); Potassium 3.9 mmol/L (3.5-5.0); Total Bilirubin 0.4 mg/dL (0.2-1.0); Total Protein 7.5 g/dL (6.4-8.9)
[2020-11-28] MEDS: Nicotine PATCH 21 MG/24 HR PATCH TRANSDERM SCH (09:28)
[2020-11-28] MEDS: Aspirin EC 81 mg TAB.EC (enteric coated) PO SCH (09:31)
[2020-11-28] MEDS: Lidocaine PATCH 5% PATCH TRANSDERM SCH (09:35)
[2020-11-28] MEDS: Collagenase 250 units/gm OINT 1 tube TOPICAL SCH ×2 (09:35→22:12)
[2020-11-28] MEDS: Polyethylene Glycol 3350 17 GM PACKET PO SCH (09:45)
[2020-11-28] MEDS: Enoxaparin 30 MG/0.3 ML SYR SUBCUT SCH (14:38)
[2020-11-28] MEDS: DAPTOmycin SDV 500 MG in NS 0.9% 50 ML 50 ML IVPB SCH (22:12)
[2020-11-28] MEDS: Lidocaine Patch REMOVE PATCH PATCH OFF SCH (22:12)
[2020-11-29] MEDS: Aspirin EC 81 mg TAB.EC (enteric coated) PO SCH (10:07)
[2020-11-29] MEDS: Lidocaine PATCH 5% PATCH TRANSDERM SCH (10:12)
[2020-11-29] MEDS: Nicotine PATCH 21 MG/24 HR PATCH TRANSDERM SCH (10:12)
[2020-11-29] MEDS: Polyethylene Glycol 3350 17 GM PACKET PO SCH (10:14)
[2020-11-29] MEDS: Collagenase 250 units/gm OINT 1 tube TOPICAL SCH ×2 (11:53→22:30)
[2020-11-29] MEDS: Enoxaparin 30 MG/0.3 ML SYR SUBCUT SCH (14:09)
[2020-11-29] MEDS: Lidocaine Patch REMOVE PATCH PATCH OFF SCH (22:30)
[2020-11-30 06:17] LABS: Calcium 8.5 mg/dL (8.6-10.3); EGFR African American 31.7 (>60); EGFR Non-African American 26.2 (>60); Potassium 3.6 mmol/L (3.5-5.0)
[2020-11-30] MEDS: Nicotine PATCH 21 MG/24 HR PATCH TRANSDERM SCH (08:47)
[2020-11-30] MEDS: Aspirin EC 81 mg TAB.EC (enteric coated) PO SCH (08:47)
[2020-11-30] MEDS: Collagenase 250 units/gm OINT 1 tube TOPICAL SCH ×2 (08:48→21:04)
[2020-11-30] MEDS: Polyethylene Glycol 3350 17 GM PACKET PO SCH (08:48)
[2020-11-30] MEDS: Lidocaine PATCH 5% PATCH TRANSDERM SCH (08:48)
[2020-11-30] MEDS: Enoxaparin 30 MG/0.3 ML SYR SUBCUT SCH (14:38)
[2020-11-30] MEDS: DAPTOmycin SDV 500 MG in NS 0.9% 50 ML 50 ML IVPB SCH (21:13)
[2020-11-30] MEDS: Lidocaine Patch REMOVE PATCH PATCH OFF SCH (21:13)
[2020-12-01] MEDS: Aspirin EC 81 mg TAB.EC (enteric coated) PO SCH (08:19)
[2020-12-01] MEDS: Polyethylene Glycol 3350 17 GM PACKET PO SCH (08:20)
[2020-12-01] MEDS: Lidocaine PATCH 5% PATCH TRANSDERM SCH (08:21)
[2020-12-01] MEDS: Nicotine PATCH 21 MG/24 HR PATCH TRANSDERM SCH (08:21)
[2020-12-01] MEDS: Collagenase 250 units/gm OINT 1 tube TOPICAL SCH ×2 (08:23→21:01)
[2020-12-01 10:52] LABS: Calcium 8.6 mg/dL (8.6-10.3); EGFR African American 28.3 (>60); EGFR Non-African American 23.4 (>60); Potassium 3.7 mmol/L (3.5-5.0)
[2020-12-01] MEDS: Enoxaparin 30 MG/0.3 ML SYR SUBCUT SCH (14:42)
[2020-12-01] MEDS: Lidocaine Patch REMOVE PATCH PATCH OFF SCH (21:01)
[2020-12-02 06:36] LABS: ABS Eosinophils 0.2 10^3/ul (0-0.6); ABS Lymphocytes 3.1 10^3/ul (1.0-4.8); ABS Monocytes 0.5 10^3/ul (0-0.8); ABS Neutrophils 3.7 10^3/ul (1.5-7.7); Eosinophil % 2.8 %; Hematocrit 26 % (35-47); Hemoglobin 8.4 g/dL (12.0-16.0); Lymphocyte % 40.9 %; Mean Corpuscular HGB Conc 33 g/dL (31-36); Mean Corpuscular Hemoglobin 30 pg (27-31); Mean Corpuscular Volume 91 fL (80-97); Mean Platelet Volume 7.4 fL (7.4-10.4); Platelet Count 217 10^3/uL (150-450); Red Blood Count 2.82 10^6 /uL (3.70-4.87); Red Cell Distribution Width 15 % (10-15); White Blood Count 7.6 10^3/uL (3.5-10.8)
[2020-12-02 07:01] LABS: EGFR African American 28.8 (>60); EGFR Non-African American 23.8 (>60); Potassium 3.6 mmol/L (3.5-5.0)
[2020-12-02] MEDS: Nicotine PATCH 21 MG/24 HR PATCH TRANSDERM SCH (07:46)
[2020-12-02] MEDS: Polyethylene Glycol 3350 17 GM PACKET PO SCH (07:46)
[2020-12-02] MEDS: Lidocaine PATCH 5% PATCH TRANSDERM SCH (07:47)
[2020-12-02] MEDS: Aspirin EC 81 mg TAB.EC (enteric coated) PO SCH (07:48)
[2020-12-02 12:27] LABS: Magnesium 1.8 mg/dL (1.9-2.7)
[2020-12-02] MEDS: Collagenase 250 units/gm OINT 1 tube TOPICAL SCH (13:57)
[2020-12-02] MEDS: Enoxaparin 30 MG/0.3 ML SYR SUBCUT SCH (14:01)
[2020-12-02 14:26] VITALS: BP 123/75
== END 2020-12-02 15:30 | disposition swing bed (61) | DRG 469 ==
LOC: MED 14:09
PROVIDERS: ADMIT Hospitalist; ATTEND Hospitalist

== ENCOUNTER 2020-12-02 15:54 | Inpatient (IN) ==
[2020-12-02] MEDS ORDERED: Senna TAB 8.6 mg TAB PO PRN (16:34)
[2020-12-02] MEDS ORDERED: Ondansetron 4 mg VIAL 2 MG/ML 2 ml VIAL IV PRN (16:34)
[2020-12-02] MEDS ORDERED: Albuterol 2.5mg/3 ml (0.083%) NEB.SOLN INH PRN (16:34)
[2020-12-02] MEDS ORDERED: Enoxaparin 30 MG/0.3 ML SYR SUBCUT SCH (17:00)
[2020-12-02] MEDS: Collagenase 250 units/gm OINT 1 tube TOPICAL SCH (21:08)
[2020-12-02] MEDS: DAPTOmycin SDV 500 MG in NS 0.9% 50 ML 50 ML IVPB SCH (21:12)
[2020-12-02] MEDS: Lidocaine Patch REMOVE PATCH PATCH OFF SCH ×2 (21:16)
[2020-12-03] MEDS: Polyethylene Glycol 3350 17 GM PACKET PO SCH (08:41)
[2020-12-03] MEDS: Aspirin EC 81 mg TAB.EC (enteric coated) PO SCH (09:05)
[2020-12-03] MEDS: Nicotine PATCH 21 MG/24 HR PATCH TRANSDERM SCH (09:08)
[2020-12-03] MEDS: Lidocaine PATCH 5% PATCH TRANSDERM SCH (09:11)
[2020-12-03] MEDS: Collagenase 250 units/gm OINT 1 tube TOPICAL SCH ×2 (09:15→21:00)
[2020-12-03] MEDS: Enoxaparin 30 MG/0.3 ML SYR SUBCUT SCH (14:43)
[2020-12-03] MEDS: Lidocaine Patch REMOVE PATCH PATCH OFF SCH (22:41)
[2020-12-04] MEDS: Lidocaine Patch REMOVE PATCH PATCH OFF SCH ×3 (03:13→21:33)
[2020-12-04] MEDS: Aspirin EC 81 mg TAB.EC (enteric coated) PO SCH (10:36)
[2020-12-04] MEDS: Polyethylene Glycol 3350 17 GM PACKET PO SCH (10:39)
[2020-12-04] MEDS: Nicotine PATCH 21 MG/24 HR PATCH TRANSDERM SCH (10:40)
[2020-12-04] MEDS: Collagenase 250 units/gm OINT 1 tube TOPICAL SCH ×2 (10:43→20:58)
[2020-12-04] MEDS: Lidocaine PATCH 5% PATCH TRANSDERM SCH (10:43)
[2020-12-04] MEDS: Enoxaparin 30 MG/0.3 ML SYR SUBCUT SCH (14:06)
[2020-12-04] MEDS: DAPTOmycin SDV 500 MG in NS 0.9% 50 ML 50 ML IVPB SCH (21:01)
[2020-12-05 05:50] LABS: ABS Eosinophils 0.3 10^3/ul (0-0.6); ABS Lymphocytes 3.7 10^3/ul (1.0-4.8); ABS Monocytes 0.6 10^3/ul (0-0.8); ABS Neutrophils 4.5 10^3/ul (1.5-7.7); Eosinophil % 2.8 %; Hematocrit 26 % (35-47); Hemoglobin 8.5 g/dL (12.0-16.0); Lymphocyte % 40.3 %; Mean Corpuscular HGB Conc 33 g/dL (31-36); Mean Corpuscular Hemoglobin 30 pg (27-31); Mean Corpuscular Volume 91 fL (80-97); Mean Platelet Volume 7.3 fL (7.4-10.4); Platelet Count 220 10^3/uL (150-450); Red Blood Count 2.87 10^6 /uL (3.70-4.87); Red Cell Distribution Width 15 % (10-15); White Blood Count 9.1 10^3/uL (3.5-10.8)
[2020-12-05 06:04] LABS: Albumin 2.8 g/dL (3.2-5.2); Albumin/Globulin Ratio 0.6 (1-3); C Reactive Protein 83.27 mg/L (<8.01); Calcium 8.6 mg/dL (8.6-10.3); EGFR African American 26.9 (>60); EGFR Non-African American 22.3 (>60); Globulin 4.6 g/dL (2-4); Potassium 3.6 mmol/L (3.5-5.0); Total Bilirubin 0.3 mg/dL (0.2-1.0); Total Protein 7.4 g/dL (6.4-8.9)
[2020-12-05] MEDS: Lidocaine PATCH 5% PATCH TRANSDERM SCH (08:40)
[2020-12-05] MEDS: Nicotine PATCH 21 MG/24 HR PATCH TRANSDERM SCH (08:40)
[2020-12-05] MEDS: Aspirin EC 81 mg TAB.EC (enteric coated) PO SCH (08:41)
[2020-12-05] MEDS: Collagenase 250 units/gm OINT 1 tube TOPICAL SCH ×2 (08:44→21:42)
[2020-12-05] MEDS: Polyethylene Glycol 3350 17 GM PACKET PO SCH (08:44)
[2020-12-05] MEDS: Enoxaparin 30 MG/0.3 ML SYR SUBCUT SCH (14:46)
[2020-12-05] MEDS: Lidocaine Patch REMOVE PATCH PATCH OFF SCH ×2 (21:42)
[2020-12-06] MEDS: Lidocaine PATCH 5% PATCH TRANSDERM SCH (08:06)
[2020-12-06] MEDS: Nicotine PATCH 21 MG/24 HR PATCH TRANSDERM SCH (08:06)
[2020-12-06] MEDS: Aspirin EC 81 mg TAB.EC (enteric coated) PO SCH (08:07)
[2020-12-06] MEDS: Collagenase 250 units/gm OINT 1 tube TOPICAL SCH ×2 (08:07→20:29)
[2020-12-06] MEDS: Polyethylene Glycol 3350 17 GM PACKET PO SCH (08:08)
[2020-12-06] MEDS: Enoxaparin 30 MG/0.3 ML SYR SUBCUT SCH (14:22)
[2020-12-06] MEDS: Lidocaine Patch REMOVE PATCH PATCH OFF SCH ×2 (20:14→20:33)
[2020-12-06] MEDS: DAPTOmycin SDV 500 MG in NS 0.9% 50 ML 50 ML IVPB SCH (21:15)
[2020-12-07] MEDS: Collagenase 250 units/gm OINT 1 tube TOPICAL SCH ×2 (08:45→20:56)
[2020-12-07] MEDS: Polyethylene Glycol 3350 17 GM PACKET PO SCH (08:46)
[2020-12-07] MEDS: Lidocaine PATCH 5% PATCH TRANSDERM SCH (08:47)
[2020-12-07] MEDS: Nicotine PATCH 21 MG/24 HR PATCH TRANSDERM SCH (08:47)
[2020-12-07] MEDS: Aspirin EC 81 mg TAB.EC (enteric coated) PO SCH (08:47)
[2020-12-07] MEDS: Enoxaparin 30 MG/0.3 ML SYR SUBCUT SCH (13:45)
[2020-12-07] MEDS: Lidocaine Patch REMOVE PATCH PATCH OFF SCH ×2 (20:56)
[2020-12-08 06:38] LABS: ABS Eosinophils 0.3 10^3/ul (0-0.6); ABS Monocytes 0.4 10^3/ul (0-0.8); ABS Neutrophils 2.4 10^3/ul (1.5-7.7); Eosinophil % 4.4 %; Hematocrit 26 % (35-47); Hemoglobin 8.7 g/dL (12.0-16.0); Lymphocyte % 48.8 %; Mean Corpuscular HGB Conc 33 g/dL (31-36); Mean Corpuscular Hemoglobin 30 pg (27-31); Mean Corpuscular Volume 90 fL (80-97); Mean Platelet Volume 7.4 fL (7.4-10.4); Platelet Count 176 10^3/uL (150-450); Red Blood Count 2.91 10^6 /uL (3.70-4.87); Red Cell Distribution Width 14 % (10-15); White Blood Count 6.2 10^3/uL (3.5-10.8)
[2020-12-08 06:49] LABS: Calcium 8.9 mg/dL (8.6-10.3); EGFR African American 27.9 (>60); Potassium 3.6 mmol/L (3.5-5.0)
[2020-12-08] MEDS: Nicotine PATCH 21 MG/24 HR PATCH TRANSDERM SCH (08:45)
[2020-12-08] MEDS: Aspirin EC 81 mg TAB.EC (enteric coated) PO SCH (08:45)
[2020-12-08] MEDS: Collagenase 250 units/gm OINT 1 tube TOPICAL SCH ×2 (08:45→20:47)
[2020-12-08] MEDS: Lidocaine PATCH 5% PATCH TRANSDERM SCH (08:45)
[2020-12-08] MEDS: Polyethylene Glycol 3350 17 GM PACKET PO SCH (08:46)
[2020-12-08] MEDS: Enoxaparin 30 MG/0.3 ML SYR SUBCUT SCH (13:54)
[2020-12-08] MEDS: DAPTOmycin SDV 500 MG in NS 0.9% 50 ML 50 ML IVPB SCH (20:47)
[2020-12-08] MEDS: Lidocaine Patch REMOVE PATCH PATCH OFF SCH ×2 (20:48→20:50)
[2020-12-09] MEDS: Aspirin EC 81 mg TAB.EC (enteric coated) PO SCH (08:27)
[2020-12-09] MEDS: Nicotine PATCH 21 MG/24 HR PATCH TRANSDERM SCH (08:28)
[2020-12-09] MEDS: Polyethylene Glycol 3350 17 GM PACKET PO SCH (08:28)
[2020-12-09] MEDS: Lidocaine PATCH 5% PATCH TRANSDERM SCH (08:28)
[2020-12-09] MEDS: Collagenase 250 units/gm OINT 1 tube TOPICAL SCH ×2 (08:33→20:38)
[2020-12-09] MEDS: Enoxaparin 30 MG/0.3 ML SYR SUBCUT SCH (14:10)
[2020-12-09] MEDS: Lidocaine Patch REMOVE PATCH PATCH OFF SCH (20:49)
[2020-12-10] MEDS: Aspirin EC 81 mg TAB.EC (enteric coated) PO SCH (09:53)
[2020-12-10] MEDS: Lidocaine PATCH 5% PATCH TRANSDERM SCH (09:54)
[2020-12-10] MEDS: Nicotine PATCH 21 MG/24 HR PATCH TRANSDERM SCH (09:54)
[2020-12-10] MEDS: Collagenase 250 units/gm OINT 1 tube TOPICAL SCH ×2 (09:55→20:40)
[2020-12-10] MEDS: Polyethylene Glycol 3350 17 GM PACKET PO SCH (09:55)
[2020-12-10] MEDS: Enoxaparin 30 MG/0.3 ML SYR SUBCUT SCH (13:42)
[2020-12-10] MEDS: Lidocaine Patch REMOVE PATCH PATCH OFF SCH (20:42)
[2020-12-11 08:09] VITALS: BP 107/74
[2020-12-11] MEDS: Nicotine PATCH 21 MG/24 HR PATCH TRANSDERM SCH (09:49)
[2020-12-11] MEDS: Aspirin EC 81 mg TAB.EC (enteric coated) PO SCH (09:51)
[2020-12-11] MEDS: Lidocaine PATCH 5% PATCH TRANSDERM SCH (09:52)
[2020-12-11] MEDS: Polyethylene Glycol 3350 17 GM PACKET PO SCH (09:52)
[2020-12-11] MEDS: Collagenase 250 units/gm OINT 1 tube TOPICAL SCH (09:52)
[2020-12-11] MEDS: Enoxaparin 30 MG/0.3 ML SYR SUBCUT SCH (13:51)
== END 2020-12-11 15:00 | disposition left against medical advice (07) ==
LOC: MED 16:19
PROVIDERS: ADMIT Hospitalist; ATTEND Internal Medicine